=== PATIENT | male | born 1955 | race Caucasian/White ===

== ENCOUNTER → 2020-01-20 10:20 | Outpatient (CLI) | payer MEDICARE, BC, SELFPAY ==
--- NOTE | 2020-01-20 10:27 | RAD_ITS ---
STUDY: X-RAY - RIGHT FOOT CLINICAL: Male, 64 years old. PLANTAR FASCITIS, LOOKING FOR A POSSIBLE SPUR TECHNIQUE: 3 view(s) of the foot. COMPARISON: None. FINDINGS: A small spur is seen at the insertion of the Achilles tendon. Tiny plantar spur. Normal visualized subtalar, talonavicular, calcaneocuboid, tarsal and tarsometatarsal articulations. Normal metatarsi. Normal metatarsophalangeal joint of the great toe. Normal tibial and fibular sesamoid bones. Normal interphalangeal joint of the great toe. Normal phalanges of the great toe. Normal second through fifth metatarsophalangeal joints. Normal interphalangeal joints and phalanges of the lesser toes. The soft tissue structures are unremarkable. RAD/Foot min 3 Views IMPRESSION: Tiny calcaneal spurs. Electronically Signed: Bravo Mccullough, at 11:09 EDT , Service support ,
== END ==
PROVIDERS: PCP Family Medicine; Referring Provider Family Medicine; Visit Provider Family Medicine
DX: M72.2 Plantar fascial fibromatosis (principal)
CPT/HCPCS: 73630

== ENCOUNTER 2020-08-02 17:25 | Outpatient (RCR) | payer MEDICARE, BC, SELFPAY | END 2020-08-02 23:59 | LOC: IMMUN 17:25 | PROVIDERS: PCP Family Medicine; Referring Provider Family Medicine; Visit Provider Family Medicine | DX: Z23 Encounter for immunization (principal) | CPT/HCPCS: 0011A; 0012A ==

== ENCOUNTER → 2021-04-19 10:25 | Outpatient (CLI) | payer MEDICARE, BC, SELFPAY ==
--- NOTE | 2021-04-19 10:29 | RAD_ITS ---
STUDY: XR Shoulder Min 2 Views REASON FOR EXAM: Male, 65 years old. PAIN TECHNIQUE: XR Shoulder Min 2 Views COMPARISON: None. FINDINGS: Normal glenohumeral articulation. Normal acromioclavicular joint. Normal acromion. Normal humeral head and visualized proximal humerus. The soft tissue structures are unremarkable. Normal visualized pulmonary apex. RAD/Shoulder min 2 Views IMPRESSION: There are no acute findings of the shoulder. Electronically Signed: Virgil Silverman MD at 16:54 EST , Service support ,
== END ==
PROVIDERS: PCP Family Medicine; Referring Provider Chiropractor; Visit Provider Chiropractor
DX: S46.912A Strain of unspecified muscle, fascia and tendon at shoulder and upper arm level, left arm, initial encounter (principal)
CPT/HCPCS: 73030

== ENCOUNTER → 2021-11-08 | Outpatient (CLI) | payer MEDICARE, BC, SELFPAY | END | disposition home or self-care (01) | LOC: LAB.FUTURE 09:42 | PROVIDERS: PCP Family Medicine; Visit Provider Family Medicine | DX: Z12.5 Encounter for screening for malignant neoplasm of prostate (principal) ==

== ENCOUNTER → 2021-11-20 | Outpatient (CLI) | payer MEDICARE, BC, SELFPAY ==
[2021-11-20 10:27] LABS: PSA,Total - Annual Screen 4.61 ng/mL (0.00-4.00)
== END | disposition home or self-care (01) ==
LOC: MTLAB 08:50
PROVIDERS: PCP Family Medicine; Referring Provider Family Medicine; Visit Provider Family Medicine
DX: Z12.5 Encounter for screening for malignant neoplasm of prostate (principal)
CPT/HCPCS: 36415; 84153; G0103

== ENCOUNTER → 2021-12-26 | Outpatient (CLI) | payer MEDICARE, BC, SELFPAY ==
[2021-12-26 15:02] LABS: Absolute Lymphocyte Count 1.14 X10^3/uL (0.83-4.51); Absolute Neutrophil Count 4.2 X10^3/uL (2.0-7.7); Basophil# 0.04 X10^3/uL; Basophil% 0.7 % (0-1); Eosinophil# 0.05 X10^3/uL; Eosinophils% 0.9 % (0-5); Hematocrit 43.3 % (40-54); Hemoglobin 14.2 g/dL (13.0-16.5); Lymphocyte # 1.14 X10^3/ul (0.83-4.51); Lymphocyte % 19.4 % (19-41); Mean Corp Hgb Conc 32.8 g/dL (32-36); Mean Corpuscular Hgb 30.6 pg (27.0-32.0); Mean Corpuscular Volume 93.3 fL (80-94); Mean Platelet Vol. 10.2 fl (6.2-12.0); Monocyte# 0.39 X10^3/uL; Monocyte% 6.6 % (0-10); NRBC Flagged by Analyzer 0 % (0-5); Neutrophil # 4.24 X10^3/uL (2.7-7.7); Neutrophil % 72.2 % (47-70); Platelet Count 252 K/mm3 (150-450); RBC Distribution Width CV 12.8 % (11.6-14.6); RBC Distribution Width SD 44.3 fl (35.1-43.9); Red Blood Count 4.64 M/mm3 (4.6-6.2); White Blood Count 5.9 K/mm3 (4.4-11.0)
[2021-12-26 15:23] LABS: ALB/GLOB Ratio 1.2 RATIO (0.9-2.4); AST(SGOT) 15 U/L (15-37); Alanine Aminotransfer ALT/SGPT 22 U/L (16-61); Albumin, Serum 3.6 g/dL (3.2-5.0); Alkaline Phosphatase 73 U/L (45-117); Anion Gap 5 (5-15); BUN 22 mg/dL (7-18); BUN/Creat Ratio 22.8 RATIO (10-20); Calcium,Total 9.1 mg/dL (8.5-10.1); Chloride 104 mmol/L (98-107); Creatinine, Serum 0.96 mg/dL (0.70-1.30); EST Glomerular Filtration Rate 83 mL/min (>60); Est Glom Filt Rate - Afr Amer 100 mL/min (>60); Glucose 90 mg/dL (74-106); Potassium 4.1 mmol/L (3.5-5.1); Protein, Total 6.6 g/dL (6.4-8.2); Sodium Level 139 mmol/L (136-145)
== END | disposition home or self-care (01) ==
PROVIDERS: PCP Family Medicine; Referring Provider Family Medicine; Visit Provider Family Medicine
DX: R63.4 Abnormal weight loss (principal)
CPT/HCPCS: 36415; 80053; 85025

== ENCOUNTER → 2022-12-17 | Outpatient (CLI) | payer MEDICARE, OTHER, SELFPAY ==
[2022-12-17 10:37] LABS: Absolute Lymphocyte Count 1.01 X10^3/uL (0.83-4.51); Absolute Neutrophil Count 3.1 X10^3/uL (2.0-7.7); Basophil# 0.04 X10^3/uL; Basophil% 0.9 % (0-1); Eosinophil# 0.06 X10^3/uL; Eosinophils% 1.3 % (0-5); Hematocrit 42.4 % (40-54); Hemoglobin 13.9 g/dL (13.0-16.5); Lymphocyte # 1.01 X10^3/ul (0.83-4.51); Lymphocyte % 21.7 % (19-41); Mean Corp Hgb Conc 32.8 g/dL (32-36); Mean Corpuscular Hgb 30.8 pg (27.0-32.0); Mean Platelet Vol. 10.1 fl (6.2-12.0); Monocyte# 0.39 X10^3/uL; Monocyte% 8.4 % (0-10); NRBC Flagged by Analyzer 0 % (0-5); Neutrophil # 3.14 X10^3/uL (2.7-7.7); Neutrophil % 67.5 % (47-70); Platelet Count 214 K/mm3 (150-450); RBC Distribution Width CV 12.7 % (11.6-14.6); RBC Distribution Width SD 44.5 fl (35.1-43.9); Red Blood Count 4.51 M/mm3 (4.6-6.2); White Blood Count 4.7 K/mm3 (4.4-11.0)
[2022-12-17 11:41] LABS: ALB/GLOB Ratio 1.1 RATIO (0.9-2.4); AST(SGOT) 18 U/L (15-37); Alanine Aminotransfer ALT/SGPT 21 U/L (16-61); Albumin, Serum 3.5 g/dL (3.2-5.0); Alkaline Phosphatase 66 U/L (45-117); Anion Gap 2 (5-15); BUN 18 mg/dL (7-18); BUN/Creat Ratio 17.8 RATIO (10-20); Calcium,Total 8.8 mg/dL (8.5-10.1); Chloride 108 mmol/L (98-107); Creatinine, Serum 1.01 mg/dL (0.70-1.30); EST Glomerular Filtration Rate 78 mL/min (>60); Est Glom Filt Rate - Afr Amer 94 mL/min (>60); Globulin 3.1 g/dL (2.2-4.2); Glucose 83 mg/dL (74-106); PSA,Total - Annual Screen 4.61 ng/mL (0.00-4.00); Potassium 4.2 mmol/L (3.5-5.1); Protein, Total 6.6 g/dL (6.4-8.2); Sodium Level 139 mmol/L (136-145)
== END | disposition home or self-care (01) ==
LOC: MTLAB 09:32
PROVIDERS: PCP Family Medicine; Referring Provider Family Medicine; Visit Provider Family Medicine
DX: R79.89 Other specified abnormal findings of blood chemistry (principal); R79.9 Abnormal finding of blood chemistry, unspecified; Z12.5 Encounter for screening for malignant neoplasm of prostate
CPT/HCPCS: 36415; 80053; 84153; 85025; G0103

== ENCOUNTER 2023-04-24 11:44 | Emergency (ER) | payer MEDICARE, OTHER, SELFPAY ==
[2023-04-24 11:45] VITALS: BP 138/77; PULSE 84; RESP 16; TEMP 36.7; O2SAT 100; BMI 23.8
--- NOTE | 2023-04-24 12:08 | EX.ED.GUMALE ---
HPI History of Present Illness Chief Complaint: Complaint Narrative Narrative: 67-year-old male past medical history of enlarged prostate, presents from CT scan after being seen by Dr. Frazier for suspected ventral hernia. Patient relates history that he was seen by his primary care provider last week. Was thought that maybe he had a ventral hernia because he complained of pressure in the suprapubic area/umbilical area. He states he has not really had problems urinating except for over the last month has had nighttime leaking of urine. No fevers or chills, no nausea or vomiting, no problems with bowel movement. He states that he has an appointment with Dr. Potts next week because of an enlarged prostate. This was set up by his primary care provider as well. He presents because CT that was obtained by general surgery showed more of an enlarged bladder with bilateral hydronephrosis. PFSH PFSH Home Medications latanoprost 0.005 % eye drops 1 drp ophthalmic (eye) DAILY 04/24/23 [History Last Taken Unknown] tamsulosin 0.4 mg capsule (Flomax) 0.4 mg PO DAILY #14 caps 04/24/23 [Rx Last Taken Unknown] Allergy/AdvReac Type Severity Reaction Status Date / Time No Known Allergies Allergy Unverified 04/24/23 08:38 Family History Father Heart disease Mother Cancer pancreatic Social History Smoking Status: Former smoker alcohol intake: current substance use type: does not use ROS ROS ED ROS Narrative Constitutional: No fever, no chills. HEENT: No sore throat. No neck pain. No loss of vision. No rhinorrhea. Cardiovascular: No chest pain. No palpitations. No pedal edema. Respiratory: No cough, no shortness of breath. Abdominal: Pubic abdominal pressure/abdominal pain. No nausea. No vomiting. Genitourinary: No dysuria. No hematuria. Positive nighttime leakage of urine. Musculoskeletal: No myalgias. No arthralgias. Neurologic: No headaches. No dizziness. No lightheadedness. Skin: No rash. No change in color. Psychiatric: No depression. No anxiety. EXAM Physical Exam Narrative Exam Narrative: Afebrile. Vital signs noted. HEENT: Normocephalic. Atraumatic. PERRL, EOMI. Neck soft and supple. No point tenderness or step off. Cardiovascular: Regular rate and rhythm. No murmurs, rubs, or gallops appreciated. Respiratory: No tachypnea. Lungs clear to auscultation bilaterally. Gastrointestinal: Abdomen soft, nontender, with normoactive bowel sounds. Distended bladder on palpation in suprapubic area. No rebound or guarding. Neurological: Awake. Alert. Nonfocal, nonlateralizing. Skin: No rash. Normal color. No pallor. Musculoskeletal: No pedal edema. Full range of motion extremities. Const Vital Signs: 04/24/23 11:45 Temperature 98.1 F Temperature Source Temporal Pulse Rate 84 Respiratory Rate 16 Blood Pressure 138/77 H Blood Pressure Mean 97 Pulse Ox 100 Oxygen Delivery Method Room Air MDM MDM MDM Narrative Medical decision making narrative: Major concern is for urinary bladder outlet obstruction secondary to BPH. I do feel that laboratory work is indicated mainly to check his kidney function and creatinine to make sure that he does not have severely elevated creatinine/acute kidney injury versus uremia. Wheeler catheter will be inserted. I reviewed his CT imaging from outpatient that was performed today. I will also send his urine for analysis to rule out UTI. In review of his outpatient diagnostic imaging he does have a distended bladder with a bladder diverticulum and bilateral hydronephrosis secondary to an enlarged prostate that measures at least 5 x 5. I reviewed his laboratory work from today and he has normal white count of 5.3, hemoglobin stable 11.1, platelet count normal at 156, sodium normal at 142 with chloride slightly elevated at 109, BUN of 27 with creatinine slightly elevated at 1.7 consistent with acute kidney injury. Glucose was appropriately elevated at 91 with a normal anion gap/low at 3. Urinalysis is negative for infection. In discussion with the patient and his , Dr. Frazier has already written him for Flomax. He has an appointment scheduled on Friday of next week with the urologist, Dr. Potts. He will be discharged with a Wheeler leg bag. I do not feel he requires observation or admission at this time. I do think that his urinary retention is secondary to his enlarged prostate and that he should get his creatinine rechecked as the bladder outflow obstruction has been relieved with a Wheeler catheter currently. Return instructions to the emergency department were reviewed. Patient and are agreeable to the plan. Disposition is discharged home in stable condition. History & Record Review Discussion w/independent historian: Patient and Family () Additional record(s) reviewed:: Prior outpatient record, Prior ED visit and Prior labs Lab Data Attestation: I reviewed the patient's lab results. Labs: Laboratory Results - last 24 hr 04/24/23 04/24/23 12:25 12:29 WBC 5.3 RBC 3.66 L Hgb 11.1 L Hct 34.7 L MCV 94.8 H MCH 30.3 MCHC 32.0 RDW Std Deviation 44.4 H RDW Coeff of Jean 12.8 Plt Count 156 MPV 10.3 Immature Gran % (Auto) 0.400 Neut % (Auto) 69.9 Lymph % (Auto) 18.5 L Charles % (Auto) 7.4 Eos % (Auto) 3.2 Baso % (Auto) 0.6 Absolute Neuts (auto) 3.7 Absolute Lymphs (auto) 0.98 Nucleated RBC % 0 Sodium 142 Potassium 4.6 Chloride 109 H Carbon Dioxide 30.0 Anion Gap 3 L BUN 27 H Creatinine 1.70 H Estim Creat Clear Calc 45.65 Est GFR (MDRD) Af Amer 52 L Est GFR (MDRD) Non-Af 43 L BUN/Creatinine Ratio 15.9 Glucose 91 Calcium 8.2 L Urine Color Yellow Urine Clarity Clear Urine pH 6.0 Ur Specific [place] 1.010 Urine Protein Negative Urine Glucose (UA) Normal Urine Ketones Negative Urine Occult Blood Negative Urine Nitrite Negative Urine Bilirubin Negative Urine Urobilinogen Normal Ur Leukocyte Esterase Negative Urine RBC 0 SEEN Urine WBC 0 SEEN Ur Squamous Epith Cells 0 SEEN Urine Bacteria 0 SEEN Urine Mucus 0 SEEN Discharge Plan Triage Chief Complaint: Complaint ED Provider: Dylon Arteaga Dx/Rx/DC Orders Clinical Impression: Bladder diverticulum, Enlarged prostate, Elevated serum creatinine, Urinary retention Instructions: ED BPH (Enlarged Prostate), ED Wheeler Catheter, Care, ED Urinary Retention, Male Prescriptions: No Action latanoprost 0.005 % drops 1 drp ophthalmic (eye) DAILY tamsulosin [Flomax] 0.4 mg capsule 0.4 mg PO DAILY Qty: 14 0RF Primary Care Provider: Michael Soto Referrals: Juanito Potts MD [Med Staff - Active Staff] - Keep Carla appointment Michael Soto DO [Primary Care Provider] - Activity Restrictions/Additional Instructions: Follow-up with Dr. Potts as scheduled. Take the Flomax written for you by Dr. Frazier. Do not pull at Wheeler catheter. Disposition Disposition: Home, Self Care
[2023-04-24 12:31] LABS: Bacteria 0 SEEN /hpf (None Seen); Mucous, Urine 0 SEEN /hpf (<or=2+); Red Blood Cells-Urine 0 SEEN /hpf (0-5); Squamous Epithelial Cells - UA 0 SEEN /hpf (0-5); White Blood Cells 0 SEEN /hpf (0-5)
[2023-04-24 12:36] LABS: Color, Urine Yellow (Yellow); Glucose, Dipstick Normal (Normal); Ketone-Dipstick Negative (Negative); Leukocyte Esterase-Dipstick Negative /ul (Negative); Nitrite-Dipstick Negative (Negative); Occult Blood-Urine Negative /ul (Negative); Protein-Dipstick Negative (Negative); Urine Bilirubin Dipstick Negative (Negative); Urine Clarity Clear (Clear); Urine Urobilinogen Normal (Normal)
[2023-04-24 12:44] LABS: Absolute Lymphocyte Count 0.98 X10^3/uL (0.83-4.51); Absolute Neutrophil Count 3.7 X10^3/uL (2.0-7.7); Basophil# 0.03 X10^3/uL; Basophil% 0.6 % (0-1); Eosinophil# 0.17 X10^3/uL; Eosinophils% 3.2 % (0-5); Hematocrit 34.7 % (40-54); Hemoglobin 11.1 g/dL (13.0-16.5); Lymphocyte # 0.98 X10^3/ul (0.83-4.51); Lymphocyte % 18.5 % (19-41); Mean Corpuscular Hgb 30.3 pg (27.0-32.0); Mean Corpuscular Volume 94.8 fL (80-94); Mean Platelet Vol. 10.3 fl (6.2-12.0); Monocyte# 0.39 X10^3/uL; Monocyte% 7.4 % (0-10); NRBC Flagged by Analyzer 0 % (0-5); Neutrophil % 69.9 % (47-70); Platelet Count 156 K/mm3 (150-450); RBC Distribution Width CV 12.8 % (11.6-14.6); RBC Distribution Width SD 44.4 fl (35.1-43.9); Red Blood Count 3.66 M/mm3 (4.6-6.2); White Blood Count 5.3 K/mm3 (4.4-11.0)
[2023-04-24 12:47] LABS: Anion Gap 3 (5-15); BUN 27 mg/dL (7-18); BUN/Creat Ratio 15.9 RATIO (10-20); Calcium,Total 8.2 mg/dL (8.5-10.1); Chloride 109 mmol/L (98-107); EST Glomerular Filtration Rate 43 mL/min (>60); Est Glom Filt Rate - Afr Amer 52 mL/min (>60); Estimated Creatinine Clearance 45.65 ml/min; Glucose 91 mg/dL (74-106); Potassium 4.6 mmol/L (3.5-5.1); Sodium Level 142 mmol/L (136-145)
== END 2023-04-24 14:19 | disposition home or self-care (01) ==
PROVIDERS: Emergency Provider Emergency Medicine; PCP Family Medicine; Visit Provider Emergency Medicine
DX: N32.3 Diverticulum of bladder (principal); N40.1 Benign prostatic hyperplasia with lower urinary tract symptoms; N13.30 Unspecified hydronephrosis; N32.0 Bladder-neck obstruction; R33.8 Other retention of urine; Z87.891 Personal history of nicotine dependence
CPT/HCPCS: 51702; 80048; 81001; 85025; 99283; A4216

== ENCOUNTER → 2023-04-24 | Outpatient (CLI) | payer MEDICARE, OTHER, SELFPAY ==
--- NOTE | 2023-04-24 09:06 | CT_ITS ---
STUDY: CT ABDOMEN AND PELVIS WITH CONTRAST REASON FOR EXAM: Male, 67 years old. Abdominal pain/enlarged bladder -- po/IV. History of BPH. RADIATION DOSAGE (If Supplied By Facility): CTDIvol = ( 13.67 ) mGy, DLP = ( 1264.14 ) mGycm TECHNIQUE: Transaxial images were obtained from the dome of the diaphragm to the symphysis pubis with oral contrast. Oral and amp; IV Gastrografin and amp; 100mL Isovue-300 was administered. Sagittal and coronal images were reconstructed. Individualized dose optimization techniques were used for this CT. COMPARISON: None. FINDINGS: The visualized lung bases are unremarkable. Coronary artery calcification. Normal liver. Normal gallbladder and extrahepatic biliary system. Normal spleen. Normal pancreas. Normal bilateral adrenal glands. Moderate degree of bilateral hydronephrosis and hydroureter down to the bladder. Normal visualized stomach. Normal small intestine. Normal colon. The appendix is visualized and appears normal. Normal abdominal aorta. Normal inferior vena cava. Normal retroperitoneum. Markedly distended urinary bladder. Marked degree of a heterogeneous enlargement of the prostate with indentation at the bladder base. The prostate measures 5.6 times by 5.6 cm. There is a 2.7 cm x 1.9 cm right posterior bladder diverticulum Normal abdominal wall. Loss of the normal lumbar lordosis. Disc space narrowing with subchondral sclerosis and spondylosis at the L4-L5 level. CT/Abdomen/Pelvis WITH Contrast IMPRESSION: Moderate degree of bilateral hydronephrosis and hydroureter due to a markedly distended urinary bladder with heterogeneous enlargement of the prostate with indentation at the bladder base. Small right posterior bladder diverticulum. Electronically Signed: Bravo Mccullough MD at 12:24 EST ,
[2023-04-24 11:42] LABS: CREATININE FINGERSTICK 1.2 mg/dL (0.70-1.30); EGFR FINGERSTICK > 60.0000 mL/min (>60)
== END | disposition home or self-care (01) ==
LOC: CT 09:03
PROVIDERS: PCP Family Medicine; Referring Provider Surgery; Visit Provider Surgery
DX: K43.9 Ventral hernia without obstruction or gangrene (principal); R10.9 Unspecified abdominal pain
CPT/HCPCS: 74177; Q9967; A4216

== ENCOUNTER → 2023-05-17 | Outpatient (CLI) | payer MEDICARE, OTHER, SELFPAY ==
[2023-05-17 14:26] LABS: Bacteria 0 SEEN /hpf (None Seen); Mucous, Urine 0 SEEN /hpf (<or=2+); Red Blood Cells-Urine 0 SEEN /hpf (0-5); Squamous Epithelial Cells - UA 0 SEEN /hpf (0-5)
[2023-05-17 14:39] LABS: Color, Urine Yellow (Yellow); Glucose, Dipstick Normal (Normal); Ketone-Dipstick Negative (Negative); Leukocyte Esterase-Dipstick 500 /ul (Negative); Nitrite-Dipstick Negative (Negative); Occult Blood-Urine 150 /ul (Negative); Protein-Dipstick 100 mg/dl (Negative); Urine Bilirubin Dipstick Negative (Negative); Urine Clarity Clear (Clear); Urine Urobilinogen Normal (Normal)
[2023-05-17 14:50] LABS: White Blood Cells >100 SEEN /hpf (0-5)
== END | disposition home or self-care (01) ==
LOC: LABSPEC 14:25
PROVIDERS: PCP Family Medicine; Visit Provider Physician Assistant Medical
DX: R33.9 Retention of urine, unspecified (principal); R30.0 Dysuria
CPT/HCPCS: 81001; 87077; 87086; 87088; 87186

== ENCOUNTER 2023-06-06 13:50 | Inpatient (IN) | payer MEDICARE, OTHER, SELFPAY ==
[2023-06-06] VITALS (14 sets, daily range): BP systolic 106–131; BP diastolic 56–92; PULSE 50–115; RESP 16–100; TEMP 36.4–37.4; O2SAT 96–100; BMI 22.1
[2023-06-06] MEDS: Lactated Ringers 1,000 ML 15 ML IV (11:21)
--- NOTE | 2023-06-06 12:30 | PROST_PTH ---
PATIENT: SHEKHAR THOMPSON LOC: MS3 U#:[id number] AGE/SX: 67/M ROOM: AR305 RE06/06/[address]: Dr. Juanito Potts MD : 1955 BED: 1 DIS: 06/08/2023 SPEC #: [id number] RECD: 06/10/23 07:53 STATUS: GORAN HEREDIA #: [id number] STORMY: 06/06/23 12:[address]: Juanito Potts DEPT: SURGICAL PATHOLOGY RECD BY: Kelsie Sarmiento ENTERED: 06/10/23 07:54 SP TYPE: PROSTATE OTHR DR: Dr. Michael Soto, DO Tissues: Prostate, NOS Procedures: Surgery Specimen Level V HEADER OPERATION: Laparoscopic robotic simple prostatectomy PRE-OP DIAGNOSIS: BPH with lower urinary tract symptoms, retention of urine TISSUE SUBMITTED: Prostate MICROSCOPIC DIAGNOSIS Prostate, simple prostatectomy: Benign prostatic hyperplasia, glandular and stromal type. Chronic inflammation. SJ:rg 06/11/2023 MICROSCOPIC DESCRIPTION Slides are reviewed. GROSS DESCRIPTION Received in fixative is one container labeled with the patient's name and designated prostate. The specimen consists of a simple prostatectomy specimen in multiple pieces weighing 69.5 gm. The largest piece measures 6.5 x 6.0 x 5.0 cm. Multiple smaller pieces are also noted measuring in aggregate 5.0 x 5.0 x 1.0 cm. Sections reveal multinodular solid cut surfaces. No obvious mass lesion is identified. Telephone Service Adviser sections are submitted in ten cassettes as follows: 1-8 - largest piece, 9 & 10 - smaller pieces. / INOCENCIO:betsy 06/10/2023 TC:5 CPT: 02283
--- NOTE | 2023-06-06 13:51 | PCM.HP.STD ---
HPI - General General Date of Service: 06/06/23 Chief Complaint: Urinary retention HPI Narrative SHEKHAR THOMPSON, is a 67 M who presents simple robotic prostatectomy for urinary retention PFSH Medical History (Updated 05/29/23 @ 08:19 by Shanice Giang) Alcohol use Former smoker History of stress test Indwelling urethral catheter present Leg cramps Migraine headache Prostate disease Shortness of breath on exertion Wears glasses Home Medications latanoprost 0.005 % eye drops 1 drp ophthalmic (eye) QHS 04/24/23 [History Last Taken Unknown] acetaminophen 500 mg tablet (Tylenol Extra Strength) 500 mg PO Q6H PRN fever or pain #20 tabs 06/06/23 [Rx Last Taken Unknown] ciprofloxacin HCl 500 mg tablet (Cipro) 500 mg PO BID #20 tabs 06/06/23 [Rx Last Taken Unknown] ibuprofen 600 mg tablet 600 mg PO Q6H PRN fever or pain #20 tabs 06/06/23 [Rx Last Taken Unknown] Allergy/AdvReac Type Severity Reaction Status Date / Time No Known Allergies Allergy Verified 06/06/23 11:09 Family History Father Heart disease Mother Cancer pancreatic Surgical History (Updated 05/29/23 @ 08:19 by Shanice Giang) Hx of colonoscopy Hx of tonsillectomy Social History Smoking Status: Former smoker alcohol intake: current substance use type: does not use Vital Signs Vital Signs Vital Signs: 06/06/23 11:12 06/06/23 11:12 Temperature 97.5 F L Temperature Source Temporal Pulse Rate 50 L Respiratory Rate 16 Respiratory Pattern Normal Blood Pressure 111/62 Blood Pressure Mean 78 Blood Pressure Source Monitor Blood Pressure Position Semi-Fowlers Blood Pressure Location Left Arm Pulse Ox 99 Oxygen Delivery Method Room Air Weight Weight: 74 kg Body Mass Index (BMI) 22.1
--- NOTE | 2023-06-06 13:52 | DCINST_ITS ---
Discharge Instructions Diet Discharge Diet: No restrictions Activity Discharge Activity: Return to Normal Activity and May Not Drive (while taking narcotic pain medications.) Dressing / Incision Call your doctor if you observe: Fever of 101 or Higher Catheter: Wheeler to leg bag and Wheeler to large bag Drain: [place] Follow Up Care Please Follow Up With: Juanito Potts MD When: Call [phone] for an appointment Test Results: Test results from this visit will be discussed in further detail at your follow- up appointment, if applicable. Discharge Plan Admission Primary Reason for Your Visit: Simple prostatectomy Attending Provider: Juanito Potts Primary Care Provider: Michael Soto Discharge Orders/Prescriptions Prescriptions: New ciprofloxacin HCl [Cipro] 500 mg tablet 500 mg PO BID Qty: 20 0RF ibuprofen 600 mg tablet 600 mg PO Q6H PRN (Reason: fever or pain) Qty: 20 0RF acetaminophen [Tylenol Extra Strength] 500 mg tablet 500 mg PO Q6H PRN (Reason: fever or pain) Qty: 20 0RF No Action latanoprost 0.005 % drops 1 drp ophthalmic (eye) QHS Referrals / Follow Up: Michael Soto DO [Primary Care Provider] - Disposition Disposition (needs filled in before D/C Order can be placed): Home, Self Care
[2023-06-06] MEDS: Cefazolin 2 GM in 0.9% Normal Saline (100mL Bag) 100 ML IV (13:53)
[2023-06-06] MEDS: Bupivacaine Mpf 0.5% 30 ML VIAL (16:00)
--- NOTE | 2023-06-06 16:16 | OP.PCM_ITS ---
Report of Operation Date of Procedure: 06/06/23 Pre-Operative Diagnosis: BPH with retention of urine Post-Operative Diagnosis: The same Surgery/Procedure Performed:: Laparoscopic robotic simple prostatectomy Description of Surgical Findings:: Patient presents for a simple robotic prostatectomy. He understands that organ to do enucleation of the obstructing adenoma and then after his surgery he will need a catheter to allow this to heal. He understands is no guarantees that after the surgery he will be able to urinate spontaneously and may need to learn how to do self intermittent catheterization. We also talked about the risk of surgery which involves risk of bleeding and infection scar tissue formation bladder neck contracture. Patient was taken back to the operating room at this induction of anesthesia he underwent and intubation and was placed supine on the table. The abdomen was shaved prepped and draped in usual sterile fashion. A Hweeler catheter was placed into the penis. I then infiltrated the skin above the umbilicus with lidocaine and made a small 5 mm incision in the skin. I then advanced a Veress needle into the peritoneal cavity and inflated the peritoneal cavity with CO2 gas. Once the pressure was at 15 mm and a nice distention of the abdomen then the camera trocar was put into the abdomen. We then looked in with the 0 degree lens and we placed a right arm trocar and left arm trocar and then an air seal suction port high up in the abdomen to allow the therapeutic recreation assistant to use this for suction. The robot was then docked and then we proceeded with the dissection. The colon was mobilized from the flexure of the colon on the patient's left side once this was freed up then the bladder was distended with 300 cc of sterile normal saline. I then made an incision in the bladder in the midline once we go t inside the bladder that drained out all the saline we then used 2 Nik needles to retract the bladder laterally. Once the bladder was retracted in a clamshell fashion laterally then we got inside the bladder inspected the bladder deflated the balloon left the catheter in place. We then started with scoring the mucosa circumferentially all the way around very large protruding adenomatous prostate. I then dissected between the adenoma and the bladder inferiorly working my way in the avascular enucleation plane between the adenoma and the prostate capsule, pseudocapsule all the way inferiorly I then started working my way laterally up on the right side of the prostate until I got to the anterior part freeing up the adenomatous tissue from the prostate and the anterior tissue and cutting through the bladder muscle and mucosa. We then worked our way laterally on the left side of the adenomatous tissue freeing up the adenoma from the prostate and the bladder muscle and mucosa I then came on top of the adenoma and was able to retract the adenoma out and then split the adenoma in half and identified the catheter and then identified the urethral strip the urethral strip was then carefully transected and then the right adenomatous tissue was removed and then the left adenomatous tissue was removed all intact and all this was placed in Endo Catch bag. Then we cauterized the prostate fossa extensively to control hemostasis Floseal was placed in the prostatic fossa. I then used a 3 oh V-Loc stitch to bring down the mucosa and advance it down towards the urethra circumferentially to advance the mucosa down to the urethral stump. We then placed a Wheeler catheter, 20 [place] into the bladder with no continuous irrigation. Irrigate out the bladder irrigate all the clots out we then closed the bladder with 2 layers using 2 oh V-Loc stitch and then a 4-0 Vicryl stitch. Both the Nik needles were removed that were retracting the bladder. We then undocked the robot we extracted the prostate adenoma through the umbilicus port we closed the air seal port with 1012 stitch and then we closed all the other ports with subcuticular stitches once the prostate was extracted to the camera port and we reapproximated the fascia and the camera port with a 0 Vicryl [id number] fashion stitch. Minimal blood loss during the case catheter was irrigated and draining well patient anesthetic was reversed and he was taken back to the PACU in good condition. Surgeon: Juanito Potts Type of Anesthesia: General Drains: 22fr Estimated Blood Loss (mL): 250ml Admit VTE Documentation VTE Present on Admission: No VTE Mechan Device Prophylaxis: SCD's VTE Pharm Prophylaxis ordered?: No
[2023-06-06] MEDS: 0.9% Normal Saline (1000mL) 1,000 ML 50 ML IV (17:58)
[2023-06-06] MEDS: Acetaminophen 325 MG Tablet PO (18:48)
[2023-06-06] MEDS: oxyCODONE 5 MG Tablet PO (18:49)
[2023-06-06] MEDS: Ketorolac 15 MG/ML Vial IV (20:44)
[2023-06-06] MEDS: Docusate Sodium 100 MG Capsule 200 MG PO (20:44)
[2023-06-06] MEDS: Latanoprost 0.005% 1 Bottle 1 DRP OPHTHALMIC (20:44)
[2023-06-06] MEDS: Ciprofloxacin 400 MG/200 ML BAG 200 MG IV (22:15)
[2023-06-07 02:20] VITALS: BP 110/59; PULSE 60; RESP 16; TEMP 37.1; O2SAT 96
[2023-06-07] MEDS: Ketorolac 15 MG/ML Vial IV (06:20)
[2023-06-07 06:57] LABS: Hematocrit 30.1 % (40-54); Mean Corp Hgb Conc 33.2 g/dL (32-36); Mean Corpuscular Hgb 30.7 pg (27.0-32.0); Mean Corpuscular Volume 92.3 fL (80-94); Platelet Count 261 K/mm3 (150-450); RBC Distribution Width SD 47.1 fl (35.1-43.9); Red Blood Count 3.26 M/mm3 (4.6-6.2); White Blood Count 10.4 K/mm3 (4.4-11.0)
[2023-06-07 06:58] VITALS: BP 107/50; PULSE 62; RESP 16; TEMP 37.2; O2SAT 98
[2023-06-07 07:13] LABS: Anion Gap 4 (5-15); BUN 23 mg/dL (7-18); BUN/Creat Ratio 16.5 RATIO (10-20); Calcium,Total 8.3 mg/dL (8.5-10.1); Chloride 107 mmol/L (98-107); Creatinine, Serum 1.39 mg/dL (0.70-1.30); EST Glomerular Filtration Rate 54 mL/min (>60); Est Glom Filt Rate - Afr Amer 65 mL/min (>60); Estimated Creatinine Clearance 53.24 ml/min; Glucose 108 mg/dL (74-106); Potassium 4.7 mmol/L (3.5-5.1); Sodium Level 138 mmol/L (136-145)
--- NOTE | 2023-06-07 08:22 | PN.URO_ITS ---
Subjective Subjective Patient out of bed this morning urine is a light bloody color but still with irrigation he is doing well up and alert pain is under control at some mild discomfort when getting out of bed. Doing well postoperative day #1 probably will be ready for discharge tomorrow Objective Data Objective Data Vital Signs: Vital Signs Temp Pulse Resp BP Pulse Ox O2 Del Method 98.9 F 62 16 107/50 L 98 Room Air 06/07/23 06:58 06/07/23 06:58 06/07/23 06:58 06/07/23 06:58 06/07/23 06:58 06/07/23 07:41 Oxygen Delivery Method Room Air Weight: 74 kg Body Mass Index (BMI) 22.1 Intake & Output: Intake and Output for Last 24 Hours 06/05/23 06/06/23 06/07/23 23:59 23:59 23:59 Intake Total 1529.17 / 1529.17 Output Total 1250 / 1250 400 / 400 Balance 279.17 / 279.17 -400 / -400 Lab / Micro Data 06/07/23 06:38 06/07/23 06:38 Labs: Laboratory Results - last 24 hr 06/07/23 06:38: WBC 10.4, RBC 3.26 L, Hgb 10.0 L, Hct 30.1 L, MCV 92.3, MCH 30.7, MCHC 33.2, RDW Std Deviation 47.1 H, RDW Coeff of Jean 14.0, Plt Count 261, MPV 9.0, Sodium 138, Potassium 4.7, Chloride 107, Carbon Dioxide 27.0, Anion Gap 4 L, BUN 23 H, Creatinine 1.39 H, Estim Creat Clear Calc 53.24, Est GFR (MDRD) Af Amer 65, Est GFR (MDRD) Non-Af 54 L, BUN/Creatinine Ratio 16.5, Glucose 108 H , Calcium 8.3 L
[2023-06-07 09:56] VITALS: BP 93/56; PULSE 60; RESP 16; TEMP 36.8; O2SAT 92
[2023-06-07] MEDS: Ciprofloxacin 400 MG/200 ML BAG 200 MG IV (11:00)
[2023-06-07] MEDS: 0.9% Normal Saline (1000mL) 1,000 ML 50 ML IV (11:00)
[2023-06-07] MEDS: Docusate Sodium 100 MG Capsule 200 MG PO ×2 (11:00→21:40)
--- NOTE | 2023-06-07 13:05 | CASEMGMT ---
RN CM Face to Face with patient for initial transition planning/care coordination assessment. RN CM introduced self and role at [facility]. Patient lying in bed, alert and oriented. Patient willing to participate in assessment and is able to answer all questions appropriately. Care providers, pharmacy, and demographics verified. Patient wishes to discharge home, denies need for home health at this time. Patient states he has no further needs or concerns at this time. CM to follow for discharge planning needs that may arise. PCP: Charles Specialists: Katlyn, urologist; Jules [employer] Preferred Pharmacy: [facility], [facility] retail Insurance: [employer] Prescription Benefit: yes Living Will/HPOA: yes, Dorina Hector LNOK: Living Arrangements: Patient lives with in a 2 story home with first floor setup available. Patient is independent at home and able to ambulate stairs. Transportation: self, DME/HHC: Patient denies DME in the home. No previous HHC or SNF. Patient going home with falcon catheter and has managed falcon at home previously Disposition Plan: Patient to discharge home with family support and follow-up plans in place. Anne-Marie TAMEZ, RN, CM
[2023-06-07 13:56] VITALS: BP 103/71; PULSE 112; RESP 14; TEMP 36.9; O2SAT 96
[2023-06-07] MEDS: oxyCODONE 5 MG Tablet PO ×2 (15:08→21:41)
[2023-06-07] MEDS: Acetaminophen 325 MG Tablet PO ×2 (15:09→21:40)
[2023-06-07 19:39] VITALS: BP 118/77; PULSE 56; RESP 18; TEMP 36.6; O2SAT 97
[2023-06-07] MEDS: Latanoprost 0.005% 1 Bottle 1 DRP OPHTHALMIC (21:42)
[2023-06-08 02:41] VITALS: BP 125/75; PULSE 66; RESP 18; TEMP 36.8; O2SAT 96
[2023-06-08] MEDS: Acetaminophen 325 MG Tablet PO (07:48)
[2023-06-08] MEDS: Docusate Sodium 100 MG Capsule 200 MG PO (07:49)
[2023-06-08 08:00] VITALS: BP 123/81; PULSE 58; RESP 14; TEMP 36.7; O2SAT 96
--- NOTE | 2023-06-08 10:02 | PCM.PN.GU ---
Subjective Subjective Status post robotic simple prostatectomy for BPH and obstruction retention of urine urine is perfectly clear off irrigation we will put a catheter plug and today he will go home with a catheter to leg bag and large bag follow-up in about 7 to 10 days for catheter removal Objective Data Objective Data Vital Signs: Vital Signs Temp Pulse Resp BP Pulse Ox O2 Del Method 98.1 F 58 L 14 123/81 H 96 Room Air 06/08/23 08:00 06/08/23 08:00 06/08/23 08:00 06/08/23 08:00 06/08/23 08:00 06/08/23 08:00 Oxygen Delivery Method Room Air Weight: 74 kg Body Mass Index (BMI) 22.1 Intake & Output: Intake and Output for Last 24 Hours 06/06/23 06/07/23 06/08/23 23:59 23:59 23:59 Intake Total 1529.17 / 1529.17 788.33 / 1288.33 2099.17 / 2099.17 Output Total 1250 / 1250 3100 / 3100 1875 / 1875 Balance 279.17 / 279.17 -2311.67 / -1811.67 224.17 / 224.17 Lab / Micro Data 06/07/23 06:38 06/07/23 06:38
== END 2023-06-08 11:55 | disposition home or self-care (01) | DRG 707 ==
LOC: SDC 15:06 → MS3 17:59
PROVIDERS: Admitting Provider Urology; PCP Family Medicine; Referring Provider Urology; Visit Provider Urology
PROC: 0VT04ZZ Resection of Prostate, Percutaneous Endoscopic Approach (ICD-10-PCS; CPT 55867; principal; 2023-06-06 12:10)
DX: N40.1 Benign prostatic hyperplasia with lower urinary tract symptoms (principal); N13.8 Other obstructive and reflux uropathy; R33.8 Other retention of urine; Z87.891 Personal history of nicotine dependence
CPT/HCPCS: 36415; 80048; 85027; 88307; 88309; 93005; 94668; 99252; J7030; J7120; G0463; J0744; J2405

== ENCOUNTER → 2023-10-13 | Outpatient (CLI) | payer MEDICARE, OTHER, SELFPAY ==
[2023-10-13 11:39] LABS: PSA,Total- Diagnostic 1.03 ng/mL (0.0-4.0)
== END | disposition home or self-care (01) ==
PROVIDERS: PCP Family Medicine; Referring Provider Urology; Visit Provider Urology
DX: R97.20 Elevated prostate specific antigen [PSA] (principal)
CPT/HCPCS: 36415; 84153

== ENCOUNTER 2024-01-08 09:34 | Outpatient (RCR) | payer MEDICARE, OTHER, SELFPAY | END 2024-01-08 19:00 | disposition home or self-care (01) | LOC: PT 09:34 | PROVIDERS: PCP Family Medicine; Referring Provider Family Medicine; Visit Provider Family Medicine | DX: M23.301 Other meniscus derangements, unspecified lateral meniscus, left knee (principal) | CPT/HCPCS: 97110; 97161 ==

== ENCOUNTER → 2024-08-04 | Outpatient (CLI) | payer MEDICARE, OTHER, SELFPAY ==
[2024-08-04 10:26] LABS: Absolute Lymphocyte Count 1.34 X10^3/uL (0.83-4.51); Absolute Neutrophil Count 3.8 X10^3/uL (2.0-7.7); Basophil# 0.04 X10^3/uL; Basophil% 0.7 % (0-1); Eosinophil# 0.16 X10^3/uL; Eosinophils% 2.8 % (0-5); Hematocrit 43.8 % (40-54); Hemoglobin 14.4 g/dL (13.0-16.5); Lymphocyte # 1.34 X10^3/ul (0.83-4.51); Lymphocyte % 23.5 % (19-41); Mean Corp Hgb Conc 32.9 g/dL (32-36); Mean Corpuscular Hgb 29.6 pg (27.0-32.0); Mean Corpuscular Volume 90.1 fL (80-94); Mean Platelet Vol. 9.4 fl (6.2-12.0); NRBC Flagged by Analyzer 0 % (0-5); Neutrophil # 3.76 X10^3/uL (2.7-7.7); Neutrophil % 65.8 % (47-70); Platelet Count 241 K/mm3 (150-450); RBC Distribution Width CV 12.7 % (11.6-14.6); Red Blood Count 4.86 M/mm3 (4.6-6.2); White Blood Count 5.7 K/mm3 (4.4-11.0)
[2024-08-04 10:51] LABS: ALB/GLOB Ratio 1.8 RATIO (0.9-2.4); AST(SGOT) 24 U/L (<=37); Alanine Aminotransfer ALT/SGPT 13 U/L (<=46); Albumin, Serum 4.1 g/dL (3.4-4.8); Alkaline Phosphatase 70 U/L (40-129); Anion Gap 13 (5-15); BUN 22 mg/dL (4-19); BUN/Creat Ratio 19.6 RATIO (10-20); Calcium 9.2 mg/dL (7.6-11.0); Carbon Dioxide 24.2 mmol/L (22.0-29.0); Chloride 103 mmol/L (96-108); Cholesterol 189 mg/dL (<=200); Creatinine, Serum 1.1 mg/dL (0.8-1.3); EST Glomerular Filtration Rate 72 (>60); Globulin 2.3 g/dL (2.2-4.2); Glucose 87 mg/dL (70-99); High Density Lipoprotein 58 mg/dL; Low Density Lipoprotein Calc. 121 mg/dL; Potassium 4.2 mmol/L (3.3-5.1); Protein, Total 6.4 g/dL (5.9-8.4); Sodium Level 140 mmol/L (133-145); Total Bilirubin 0.46 mg/dL (0.00-1.30); Triglycerides 49 mg/dL; Very Low Density Lipoprotein 10 mg/dL (5-40); cholesterol:hdl ratio screen 3.27
== END | disposition home or self-care (01) ==
LOC: MTLAB 08:20
PROVIDERS: PCP Family Medicine; Referring Provider Family Medicine; Visit Provider Family Medicine
DX: N18.31 Chronic kidney disease, stage 3a (principal); D64.9 Anemia, unspecified
CPT/HCPCS: 36415; 80053; 80061; 85025

== ENCOUNTER → 2024-10-19 | Outpatient (CLI) | payer MEDICARE, OTHER, SELFPAY ==
[2024-10-19 10:41] LABS: PSA,Total- Diagnostic 0.69 ng/mL (0.00-4.00)
== END | disposition home or self-care (01) ==
LOC: MTLAB 08:46
PROVIDERS: PCP Family Medicine; Referring Provider Urology; Visit Provider Urology
DX: R97.20 Elevated prostate specific antigen [PSA] (principal)
CPT/HCPCS: 36415; 84153

== ENCOUNTER → 2025-06-06 | Outpatient (CLI) | payer MEDICARE, OTHER, SELFPAY ==
--- OUTSIDE RECORDS SUMMARY | 2025-06-06 10:27 | XMS RPT_ITS | CCD ---
Author Organization [facility] Care Team Providers Care Inspector Hairspring Name Role Phone Dr. Michael Soto Primary Care Provider Dr. Michael Soto Referring Provider [phone] Dr. Elvira Frazier Attending Provider Malou ALVARES, PA Ambar Kevin Attending Provider Dr. Michael Soto DO Primary Care Provider Dr. Michael Soto DO Attending Provider Dr. Michael Soto DO Referring Provider Katlyn VILLEDA, Dr. Juanito Cason Attending Provider [phone] Katlyn VILLEDA, Dr. Juanito Cason Referring Provider [phone] Michael Soto Attending Unavailable Michael Soto Primary Care Unavailable Michael Soto Referring Unavailable Michael Soto Primary Care Unavailable Michael Soto Referring Unavailable Michael Soto Attending Unavailable Michael Soto Primary Care Unavailable Juanito Potts Referring Unavailable Juanito Potts Attending Unavailable Medications Current Medications Medication Drug Class(es) Dates Sig (Normalized) Sig (Original) acetaminophen 500 mg oral tablet (4 sources) Start: 06-06-2023 take 1 tablet by mouth every six hours as needed for pain Acetaminophen (Tylenol Extra Strength) 500 mg tablet Active 500 mg PO EVERY 6 HOURS as needed for fever or pain June 06, 2023 1:00am ciprofloxacin 500 mg oral tablet (9 sources) Quinolone Antimicrobial Start: 06-06-2023 take 1 tablet by mouth twice daily Ciprofloxacin Hcl (Cipro) 500 mg tablet Active 500 mg PO TWICE A DAY June 06, 2023 1:00am Start: 05-17-2023 End: 05-27-2023 take 1 tablet by mouth twice daily Ciprofloxacin Hcl 500 mg tablet Discontinued 500 mg PO TWICE A DAY 28 03May 17, 2023 1:00am May 26, 2023 1:00am May 27, 2023 1:05am ibuprofen 600 mg oral tablet (4 sources) Nonsteroidal Anti-inflammatory Drug Start: 06-06-2023 take 1 tablet by mouth every six hours as needed for pain Ibuprofen 600 mg tablet Active 600 mg PO EVERY 6 HOURS as needed for fever or pain June 06, 2023 1:00am latanoprost 0.05 mg/ml ophthalmic solution (7 sources) Prostaglandin Analog Start: 04-24-2023 Latanoprost 0.005 % drops Active 1 NMA OPHTHALMIC AT BEDTIME April 24, 2023 1:00am Start: 04-24-2023 Latanoprost Ac tive 1 DRP OPHTHALMIC AT BEDTIME April 24, 2023 1:00am Start: 04-24-2023 Latanoprost Ac tive 1 DRP OPHTHALMIC DAILY April 24, 2023 12:00am tamsulosin hydrochloride 0.4 mg oral capsule (3 sources) alpha-Adrenergic Porfirio Start: 04-24-2023 take 1 capsule by mouth once daily Tamsulosin (Flomax) 0.4 mg capsule Active 0.4 MG PO DAILY April 24, 2023 12:00am Problems Problem Classification Problem Date Documented Da te Episodic/Chronic Abdominal hernia (7 sources) Hernia of anterior abdominal wall; Translations: [Ventral hernia without obstruction or gangrene] 04-24-2023 Episodic Chronic kidney disease (1 source) Chronic kidney disease; Translations: [Chronic kidney disease, stage 3a] Onset: 08-19-2024 Genitourinary symptoms and ill-defined conditions (13 sources) Retention of urine; Translations: [Retention of urine, unspecified] 04-24-2023 Episodic Hyperplasia of prostate (7 sources) Large prostate ; Translations: [Benign prostatic hyperplasia without lower urinary tract symptoms] 04-24-2023 Chronic Joint disorders and dislocations; trauma-related (1 source) Other meniscus derangements, unspecified lateral meniscus, left knee; Translations: [Other meniscus derangements, unspecified lateral meniscus, left knee] Onset: 06-03-2024 Chronic Other connective tissue disease (7 sources) Diastasis recti; Translations: [Separation of muscle (nontraumatic), other site] 04-24-2023 Episodic Other connective tissue disease (4 sources) Separation of muscle (nontraumatic), other site; Translations: [Diastasis of muscle] 04-24-2023 Episodic Other diseases of bladder and urethra (7 sources) Diverticulum of bladder; Translations: [Diverticulum of bladder] 04-24-2023 Chronic Other screening for suspected conditions (not mental disorders or infectious disease) (8 sources) Serum creatinine raised; Translations: [Other specified abnormal findings of blood chemistry] Onset: 10-25-2024 04-24-2023 Episodic Urinary tract infections (7 sources) Urinary tract infectious disease; Translations: [Urinary tract infection, site not specified] 05-17-2023 Episodic Results Test Name Value Interpretation Reference Range Facility PSA,Total- Diagnosticon 10-07 PSA, DIAGNOSTIC 0.69 ng/mL Normal 0.00-4.00 [facility] Comment on above: Result Comment: This test was performed using the [facility] [employer] tPSA method. Measured values of a patient??sample can vary depending on the testing procedure used. PSA values determined on patient samples by different testing procedures cannot be used interchangeably. If there is a change in PSA assays while monitoring therapy, sequential testing should be performed to confirm baseline values. Performed By: #### L 501.9940 #### [facility] [address] [place], [address] Absolute lymphocyte countOrd ered By: Michael Soto on 08-04-2024 Lymphocytes Auto (Unsp spec) [#/Vol] 1.34 10*3/uL 0.83-4.51 [facility] Absolute neutrophil countOrd ered By: Michael Soto on 08-04-2024 Neutrophils (Bld) [#/Vol] 3.8 10*3/uL 2.0-7.7 [facility] Automated lymphocyte count a s percentage of total leukocytesOrdered By: Michael Soto on 08-04-2024 Lymphocytes/100 WBC Auto (Unsp spec) 23.5 % 19-41 [facility] BUN/creatinine ratioOrdered By: Michael Soto on 08-04-2024 Urea nitrogen/Creatinine [Mass ratio] 19.6 mg/mg 10-20 [facility] Basophil percentageOrdered B y: Michael Soto on 08-04-2024 Basophils/100 WBC (Bld) 0.7 % 0-1 [facility] Bilirubin, totalOrdered By: Michael Soto on 08-04-2024 Bilirubin [Mass/Vol] 0.46 mg/dL 0.00-1.30 [facility] CBC W/Diff, Automatedon 07-11 Absolute Lymph 1.34 X10 3/uL Normal 0.83-4.51 [facility] Comment on above: Performed By: #### L 100.0100, L500.4050, L500.4100 #### [facility] [address] [place], [address] Absolute Neut 3.8 X10 3/uL Normal 2.0-7.7 [facility] Comment on above: Performed By: #### L 100.0100, L500.4050, L500.4100 #### [facility] [address] [place], [address] Basophils/100 WBC (Bld) 0.7 % Normal 0-1 [facility] Comment on above: Performed By: #### L 100.0100, L500.4050, L500.4100 #### [facility] [address] [place], [address] Eosinophils/100 WBC (Bld) 2.8 % Normal 0-5 [facility] Comment on above: Performed By: #### L 100.0100, L500.4050, L500.4100 #### [facility] [address] [place], [address] Erythrocyte distribution width (RBC) [Ratio] 12.7 % Normal 11.6-14.6 [facility] Comment on above: Performed By: #### L 100.0100, L500.4050, L500.4100 #### [facility] [address] [place], [address] Hematocrit (Bld) [Volume fraction] 43.8 % Normal 40-54 [facility] Comment on above: Performed By: #### L 100.0100, L500.4050, L500.4100 #### [facility] [address] [place], [address] Hemoglobin (Bld) [Mass/Vol] 14.4 g/dL Normal 13.0-16.5 [facility] Comment on above: Performed By: #### L 100.0100, L500.4050, L500.4100 #### [facility] [address] [place], [address] IG% 0.200 Normal 0.0-0.9 [facility] Comment on above: Result Comment: IG% - Immature Granulocytes (promyelocytes, myelocytes and metamyelocytes) > 1% indicates that a LEFT SHIFT is Present. Performed By: #### L 100.0100, L500.4050, L500.4100 #### [facility] [address] [place], [address] Lymphocytes/100 WBC (Bld) 23.5 % Normal 19-41 [facility] Comment on above: Performed By: #### L 100.0100, L500.4050, L500.4100 #### [facility] [address] [place], [address] MCH (RBC) [Entitic mass] 29.6 pg Normal 27.0-32.0 [facility] Comment on above: Performed By: #### L 100.0100, L500.4050, L500.4100 #### [facility] [address] [place], [address] MCHC (RBC) [Mass/Vol] 32.9 g/dL Normal 32-36 [facility] Comment on above: Performed By: #### L 100.0100, L500.4050, L500.4100 #### [facility] [address] [place], [address] MCV (RBC) [Entitic vol] 90.1 fL Normal 80-94 [facility] Comment on above: Performed By: #### L 100.0100, L500.4050, L500.4100 #### [facility] [address] [place], [address] Monocytes/100 WBC (Bld) 7.0 % Normal 0-10 [facility] Comment on above: Performed By: #### L 100.0100, L500.4050, L500.4100 #### [facility] [address] [place], [address] Neutrophils/100 WBC (Bld) 65.8 % Normal 47-70 [facility] Comment on above: Performed By: #### L 100.0100, L500.4050, L500.4100 #### [facility] [address] [place], [address] Nucleated RBC (Bld) [#/Vol] 0 10*3/uL Normal 0-5 [facility] Comment on above: Performed By: #### L 100.0100, L500.4050, L500.4100 #### [facility] [address] [place], [address] Platelet mean volume (Bld) [Entitic vol] 9.4 fL Normal 6.2-12.0 [facility] Comment on above: Performed By: #### L 100.0100, L500.4050, L500.4100 #### [facility] [address] [place], [address] Platelets (Bld) [#/Vol] 241 10*3/uL Normal 150-450 [facility] Comment on above: Performed By: #### L 100.0100, L500.4050, L500.4100 #### [facility] [address] [place], [address] RBC (Bld) [#/Vol] 4.86 10*6/uL Normal 4.6-6.2 [facility] Comment on above: Performed By: #### L 100.0100, L500.4050, L500.4100 #### [facility] [address] [place], [address] RDW SD 42.0 fl Normal 35.1-43.9 [facility] Comment on above: Performed By: #### L 100.0100, L500.4050, L500.4100 #### [facility] [address] [place], [address] WBC (Bld) [#/Vol] 5.7 10*3/uL Normal 4.4-11.0 [facility] Comment on above: Performed By: #### L 100.0100, L500.4050, L500.4100 #### [facility] [address] [place], [address] Calculated very low density lipoprotein (VLDL) cholesterol measurementOrdered By: Michael Soto on 08-04-2024 Calculated very low density lipoprotein (VLDL) cholesterol measurement 10 mg/dL 5-40 [facility] VLDL Cholesterol 10 mg/dL 5-40 [facility] Carbon dioxide measurementOr dered By: Michael Soto on 08-04-2024 CO2 [Moles/Vol] 24.2 mmol/L 22.0-29.0 [facility] Chloride measurementOrdered By: Michael Soto on 08-04-2024 Chloride [Moles/Vol] 103 mmol/L 96-108 [facility] Comprehensive Metabolic Prof ilon 08-04-2024 Albumin [Mass/Vol] 4.1 g/dL Normal 3.4-4.8 [facility] Comment on above: Performed By: #### L 100.0100, L500.4050, L500.4100 #### [facility] [address] [place], [address] Albumin/Globulin [Mass ratio] 1.8 {ratio} Normal 0.9-2.4 [facility] Comment on above: Performed By: #### L 100.0100, L500.4050, L500.4100 #### [facility] [address] [place], [address] ALK PHOS 70 U/L Normal 40-129 [facility] Comment on above: Performed By: #### L 100.0100, L500.4050, L500.4100 #### [facility] [address] [place], [address] ALT [Catalytic activity/Vol] 13 U/L Normal <=46 [facility] Comment on above: Performed By: #### L 100.0100, L500.4050, L500.4100 #### [facility] [address] [place], [address] Anion gap [Moles/Vol] 13 mmol/L Normal 5-15 [facility] Comment on above: Performed By: #### L 100.0100, L500.4050, L500.4100 #### [facility] [address] [place], [address] AST [Catalytic activity/Vol] 24 U/L Normal <=37 [facility] Comment on above: Performed By: #### L 100.0100, L500.4050, L500.4100 #### [facility] [address] [place], [address] Bilirubin [Mass/Vol] 0.46 mg/dL Normal 0.00-1.30 [facility] Comment on above: Performed By: #### L 100.0100, L500.4050, L500.4100 #### [facility] [address] [place], [address] BUN/CRE 19.6 RATIO Normal 10-20 [facility] Comment on above: Performed By: #### L 100.0100, L500.4050, L500.4100 #### [facility] [address] [place], [address] Calcium [Mass/Vol] 9.2 mg/dL Normal 7.6-11.0 [facility] Comment on above: Performed By: #### L 100.0100, L500.4050, L500.4100 #### [facility] [address] [place], [address] Chloride [Moles/Vol] 103 mmol/L Normal 96-108 [facility] Comment on above: Performed By: #### L 100.0100, L500.4050, L500.4100 #### [facility] [address] [place], [address] CO2 [Moles/Vol] 24.2 mmol/L Normal 22.0-29.0 [facility] Comment on above: Performed By: #### L 100.0100, L500.4050, L500.4100 #### [facility] [address] [place], [address] Creatinine [Mass/Vol] 1.1 mg/dL Normal 0.8-1.3 [facility] Comment on above: Performed By: #### L 100.0100, L500.4050, L500.4100 #### [facility] [address] [place], [address] GFR/1.73 sq M.predicted among non-blacks MDRD (S/P/Bld) [Vol rate/Area] 72 mL/min/{1.73_m2} Normal >60 [facility] Comment on above: Result Comment: mL/m in/1.73m2 CKD-EPI Creatinine Equation (2020) Performed By: #### L 100.0100, L500.4050, L500.4100 #### [facility] [address] [place], [address] Globulin (S) [Mass/Vol] 2.3 g/dL Normal 2.2-4.2 [facility] Comment on above: Performed By: #### L 100.0100, L500.4050, L500.4100 #### [facility] [address] [place], [address] Glucose [Mass/Vol] 87 mg/dL Normal 70-99 [facility] Comment on above: Performed By: #### L 100.0100, L500.4050, L500.4100 #### [facility] [address] [place], [address] Potassium [Moles/Vol] 4.2 mmol/L Normal 3.3-5.1 [facility] Comment on above: Performed By: #### L 100.0100, L500.4050, L500.4100 #### [facility] [address] [place], [address] Sodium [Moles/Vol] 140 mmol/L Normal 133-145 [facility] Comment on above: Performed By: #### L 100.0100, L500.4050, L500.4100 #### [facility] [address] [place], [address] T PROT 6.4 g/dL Normal 5.9-8.4 [facility] Comment on above: Performed By: #### L 100.0100, L500.4050, L500.4100 #### [facility] [address] [place], [address] Urea nitrogen [Mass/Vol] 22 mg/dL High 4-19 [facility] Comment on above: Performed By: #### L 100.0100, L500.4050, L500.4100 #### [facility] [address] [place], [address] Eosinophil percentageOrdered By: Michael Soto on 08-04-2024 Eosinophils/100 WBC (Bld) 2.8 % 0-5 [facility] Erythrocyte distribution wid th ratioOrdered By: Michael Soto on 08-04-2024 Erythrocyte distribution width (RBC) [Ratio] 12.7 % 11.6-14.6 [facility] Erythrocyte distribution wid th standard deviationOrdered By: Michael Soto on 08-04-2024 Erythrocyte distribution width (RBC) [Entitic vol] 42.0 fL 35.1-43.9 [facility] Erythrocyte distribution width (RBC) [Ratio] 42.0 fl 35.1-43.9 [facility] GFR/1.73 sq M.predicted bret g non-blacks MDRD (S/P/Bld) [Vol rate/Area]Ordered By: Michael Soto on 08-04-2024 Estimated GFR (MDRD) Non-Af Amer 72 >60 [facility] Comment on above: mL/min/1.73m2 CKD-EP I Creatinine Equation (2020) Glomerular filtration rate ( GFR) estimation/1.73 sq m using serum, plasma, or whole bOrdered By: Michael Soto on 08-04-2024 GFR/1.73 sq M.predicted among non-blacks MDRD (S/P/Bld) [Vol rate/Area] 72 mL/min/{1.73_m2} >60 [facility] Comment on above: mL/min/1.73m2 CKD-EP I Creatinine Equation (2020) Hematocrit Auto (Bld) [Volum e fraction]Ordered By: Michael Soto on 08-04-2024 Hematocrit (Bld) [Volume fraction] 43.8 % 40-54 [facility] Hemoglobin measurementOrdere d By: Michael Soto on 08-04-2024 Hemoglobin (Bld) [Mass/Vol] 14.4 g/dL 13.0-16.5 [facility] Immature granulocytes/100 WB C Auto (Bld)Ordered By: Michael Soto on 08-04-2024 Immature granulocytes/100 WBC (Bld) 0.200 % 0.0-0.9 [facility] Comment on above: IG% - Immature Granu locytes (promyelocytes, myelocytes and metamyelocytes) > 1% indicates that a LEFT SHIFT is Present. LDL calc ser/plasOrdered By: Michael Soto on 08-04-2024 Cholesterol in LDL [Mass/Vol] 121 mg/dL [facility] Comment on above: Gpcmtyweck=447-766 m g/dL & Higher Jxji=241 mg/dL or greater LDL Cholesterol, Calculated 121 mg/dL [facility] Comment on above: Peiguaynan=979-464 m g/dL & Higher Wufk=391 mg/dL or greater Laboratory - Chemistry and C hemistry - challengeOrdered By: Michael Soto on 08-04-2024 AST [Catalytic activity/Vol] 24 U/L <38 [facility] Lipid Profileon 08-04-2024 CHOL:HDL 3.27 Normal [facility] Comment on above: Performed By: #### L 100.0100, L500.4050, L500.4100 #### [facility] [address] [place], [address] Cholesterol [Mass/Vol] 189 mg/dL Normal <=200 [facility] Comment on above: Result Comment: Chol esterol level, Desirable <200 mg/dL Borderline high cholesterol 200-239 mg/dL High cholesterol >=240 mg/dL Recommendations of the NCEP Adult Treatment Panel for the following risk-cutoff thresholds for the [place] population. Performed By: #### L 100.0100, L500.4050, L500.4100 #### [facility] [address] [place], [address] Cholesterol in HDL [Mass/Vol] 58 mg/dL Normal [facility] Comment on above: Result Comment: Dora onal Cholesterol Education Program (NCEP) guidelines: <40 mg/dL: Low HDL-cholesterol (major risk factor for CHD) >= 60 mg/dL: High HDL-cholesterol (negative risk factor for CHD) HDL-cholesterol is affected by a number of factors, e.g. smoking, exercise, hormones, sex and age. Performed By: #### L 100.0100, L500.4050, L500.4100 #### [facility] [address] [place], [address] Cholesterol in LDL [Mass/Vol] 121 mg/dL Normal [facility] Comment on above: Result Comment: Bord ghpfov=992-346 mg/dL Higher Patd=733 mg/dL or greater Performed By: #### L 100.0100, L500.4050, L500.4100 #### [facility] [address] [place], [address] Cholesterol in VLDL [Mass/Vol] 10 mg/dL Normal 5-40 [facility] Comment on above: Performed By: #### L 100.0100, L500.4050, L500.4100 #### [facility] [address] [place], [address] Triglyceride [Mass/Vol] 49 mg/dL Normal [facility] Comment on above: Result Comment: The drugs N-Acetylcysteine and Metamizole may falsely depress this assay. Normal range: <150 mg/dL Borderline High: 150-199 mg/dL High: 200-499 mg/dL Very High: >500 mg/dL Performed By: #### L 100.0100, L500.4050, L500.4100 #### [facility] [address] [place], [address] Lymphocytes Auto (Unsp spec) [#/Vol]Ordered By: Michael Soto on 08-04-2024 Lymphocytes (Bld) [#/Vol] 1.34 10*3/uL 0.83-4.5 1 [facility] Lymphocytes/100 WBC Auto (Un sp spec)Ordered By: Michael Soto on 08-04-2024 Lymphocytes/100 WBC (Bld) 23.5 % 19-41 [facility] MCV (mean corpuscular volume ) determinationOrdered By: Michael Soto on 08-04-2024 MCV (RBC) [Entitic vol] 90.1 fL 80-94 [facility] Mean corpuscular hemoglobin (MCH) determinationOrdered By: Michael Soto on 08-04-2024 MCH (RBC) [Entitic mass] 29.6 pg 27.0-32.0 [facility] Mean corpuscular hemoglobin concentration (MCHC) determinationOrdered By: Michael Soto on 08-04-2024 MCHC (RBC) [Mass/Vol] 32.9 g/dL 32-36 [facility] Mean platelet volume determi nationOrdered By: Michael Soto on 08-04-2024 Platelet mean volume (Bld) [Entitic vol] 9.4 fL 6.2-12.0 [facility] Monocyte percentageOrdered B y: Michael Soto on 08-04-2024 Monocytes/100 WBC (Bld) 7.0 % 0-10 [facility] Neutrophil percentageOrdered By: Michael Soto on 08-04-2024 Neutrophils/100 WBC (Bld) 65.8 % 47-70 [facility] Nucleated red blood cell per centageOrdered By: Michael Soto on 08-04-2024 Nucleated RBC/100 WBC (Bld) [Ratio] 0 % 0-5 [facility] Platelet countOrdered By: Ben Soto on 08-04-2024 Platelets (Bld) [#/Vol] 241 10*3/uL 150-450 [facility] RBC Auto (Bld) [#/Vol]Ordere d By: Michael Soto on 08-04-2024 RBC (Bld) [#/Vol] 4.86 10*6/uL 4.6-6.2 [facility] Screening total cholesterol/ high density lipoprotein (HDL) cholesterol ratioOrdered By: Michael Soto on 08-04-2024 Cholesterol.total/Cholest leda in HDL [Mass ratio] 3.27 {ratio} [facility] Serum creatinine measurement (mass/volume)Ordered By: Michael Soto on 08-04-2024 Creatinine [Mass/Vol] 1.1 mg/dL 0.70-1.20 [facility] Serum globulin measurementOr dered By: Michael Soto on 08-04-2024 Globulin (S) [Mass/Vol] 2.3 g/dL 2.2-4.2 [facility] Serum glucose measurement (m ass/volume)Ordered By: Michael Soto on 08-04-2024 Glucose [Mass/Vol] 87 mg/dL 70-99 [facility] Serum or plasma alanine guzman otransferase (ALT) measurementOrdered By: Michael Soto on 08-04-2024 ALT [Catalytic activity/Vol] 13 U/L <47 [facility] Serum or plasma albumin enriqueta urement (mass/volume)Ordered By: Michael Soto on 08-04-2024 Albumin [Mass/Vol] 4.1 g/dL 3.4-4.8 [facility] Serum or plasma albumin/glob ulin mass ratioOrdered By: Michael Soto on 08-04-2024 Albumin/Globulin [Mass ratio] 1.8 {ratio} 0.9-2.4 [facility] Serum or plasma alkaline christa sphatase measurementOrdered By: Michael Soto on 08-04-2024 ALP [Catalytic activity/Vol] 70 U/L 40-129 [facility] Serum or plasma anion gap de termination (moles/volume)Ordered By: Michael Soto on 08-04-2024 Anion gap [Moles/Vol] 13 mmol/L 5-15 [facility] Serum or plasma calcium enriqueta urement (mass/volume)Ordered By: Michael Soto on 08-04-2024 Calcium [Mass/Vol] 9.2 mg/dL 7.6-11.0 [facility] Serum or plasma cholesterol in HDL measurement (mass/volume)Ordered By: Michael Soto on 08-04-2024 Cholesterol in HDL [Mass/Vol] 58 mg/dL >40 [facility] Comment on above: National Cholesterol Education Program (NCEP) guidelines:<40 mg/dL: Low HDL-cholesterol (major risk factor for CHD)>= 60 mg/dL: High HDL-cholesterol (negative risk factor for CHD)HDL-cholesterol is affected by a number of factors, e.g. smoking, exercise, hormones, sex and age. Serum or plasma cholesterol measurement (mass/volume)Ordered By: Michael Soto on 08-04-2024 Cholesterol [Mass/Vol] 189 mg/dL <201 [facility] Comment on above: Cholesterol level, D esirable <200 mg/dLBorderline high cholesterol 200-239 mg/dLHigh cholesterol >=240 mg/dLRecommendations of the NCEP Adult Treatment Panel for the following risk-cutoff thresholds for the [place] population. Serum or plasma potassium me asurementOrdered By: Michael Soto on 08-04-2024 Potassium [Moles/Vol] 4.2 mmol/L 3.3-5.1 [facility] Serum or plasma sodium measu rement (moles/volume)Ordered By: Michael Soto on 08-04-2024 Sodium [Moles/Vol] 140 mmol/L 133-145 [facility] Serum or plasma urea nitroge n measurement (mass/volume)Ordered By: Michael Soto on 08-04-2024 Urea nitrogen [Mass/Vol] 22 mg/dL High 4-19 [facility] Total proteinOrdered By: Radha Soto on 08-04-2024 Protein [Mass/Vol] 6.4 g/dL 5.9-8.4 [facility] Triglycerides measurementOrd ered By: Michael Soto on 08-04-2024 Triglyceride [Mass/Vol] 49 mg/dL <199 [facility] Comment on above: The drugs N-Acetylcy steine and Metamizole may falsely depress this assay. Normal range: <150 mg/dLBorderline High: 150-199 mg/dLHigh: 200-499 mg/dLVery High: >500 mg/dL White blood cell (WBC) count Ordered By: Michael Soto on 08-04-2024 WBC (Bld) [#/Vol] 5.7 10*3/uL 4.4-11.0 [facility] Inital Evaluation (1) - PTon 01-12-2024 Inital Evaluation (1) - PT [facility] [address] [place] [address]. [address] [place] [address] / REHABILITATION SERVICES INITIAL EVALUATION MR#: [id number] Acct: [id number] Name: SHEKHAR THOMPSON Rep #: [id number] : 1955 68 From: Wilyl Dhillon DPT Referring Dr.: Dr. Michael Soto, DO Status: RE G RCR Insurance: MEDICARE PART A B [employer] SR SUPPLEMENT INS Patient's Visit Information Visit Information Visit Information: SHEKHAR THOMPSON is a 68 year old M referred to Physical Therapy by Dr. Michael Soto DO with a diagnosis of L meniscal derangement. Date of Evaluation: 01/08/24 Physical Therapist: Willy Dhillon DPT Visit Plan Frequency: 1x/Week Duration: 4 Weeks Plan: Work on glute max and glute medius strengthening. Add in core strength. Educate on proper squat mechanics and limit depth for better tolerance. As Pt. progresses add in walk to jog program as tolerated. Subjective Subjective: Pt. is here today for his initial evaluation with diagnosis of L meniscal derangement. Pt. reports having a chronic meniscal tear. Pt. report overall doing okay, but over the past few weeks he has had more knee pain resulting in more walking than running. He reports that he loves to run and would rather not give it up. He also does calisthenics, alternating between the two. He reports having difficulty with squatting. Pt. reports no injections. 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 Pt. reports doing some strengthening and keeping his pain low. He is hopeful to do the same. No N/T noted. Pain L knee: Pain Intensity (Out of 10): 2 Pain Intensity Range: 0 and 4 Objective Objective: POSTURE: Pt. has decent posture in stance. Normal and equal WBing. No major valgus/varus positioning. PALPATION: Pt. has minimal pain with palpation of L knee joint line. No mild pain with posterior lateral knee, near lateral insertion of HS. NEURO: normal throughout. ROM: Pt. has great ROM in B knees without increase in symptoms. Mild pain iwth L knee flexion with deep over pressure. Good hip flexor and HS length noted. MMT: Pt. has equal and decent strength throughout BLEs. Slight weakness in B glutes and hip abductors. GAIT: normal gait pattern. Pt. has normal squat pattern. He was able to deep squat, but did favor his LLE with initially rising from depth of squat. Mild increase in pain noted as well. Special Tests L Knee Kathia - Meniscus: Positive L Knee Disco Test - Meniscus: Positive Balance/Special Test Scores Lower Extremity Functional Score: 70 Goals Goal 1:: STG: Pt. to be I with all glute max/medius HEP. Goal Time Frame: 2 Weeks Goal 2:: STG: Pt. to initiate a walk to jog program without increase in symptoms. 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 Goal Time Frame: 2-4 Weeks Rehabilitation Potential Physical Therapy Diagnosis: Pt. has signs and symptoms consistent with L meniscal derangement. Pt. has overall good ROM and decent strength. I did mention to hip about progressing his hip and glute strength, but also some activity modifications. Rehabilitation Potential: Good Anticipated Interventions Patient/Client Instruction: Educate patient on: Condition, Plan of Care, Risk Factors and Benefits of Fitness Program For the Purpose of:: To foster healthy habits, To improve decision making, To facilitate caregiver knowledge, To improve self management, To prevent re-injury and To improve ability to perform tasks related to life management Therapeutic Exercise to Include: Strength training, Power training, Agility training, Body mechanics, Flexibilty training and Dynamic Lumbar Stabilization For the Purpose of:: To decrease pain, To increase ROM, To improve nutrient delivery to tissue, To increase oxygenation perfusion, To improve muscle performance and motor function, To improve ability to perform ADL's, To increase tolerance to activity/condition/ position, To decrease level of supervision to perform tasks, To improve gait and locomotor functions and To improve health of tissue Text: Thank you for the opportunity to evaluate your patient. For Medicare and Medicare HMO plans, please review the plan of care and approve it. It will need to be FAXED BACK to us at [phone] for Medicare purposes. For Medicare only, by signing this I certify the plan of care. Please let me know if there are questions or concerns regarding this plan of care. Physician Signature: __Date: 01/12/24 1653 CC: Dr. Michael Soto DO CLS Signed Normal [facility] Basophil percentageOrdered B y: Juanito Potts on 10-13-2023 Basophil percentage 1.03 ng/mL 0.0-4.0 [facility] Comment on above: This test was perfor med using the TPSA assay method for the[employer] chemistry system. Values obtained with differentassay methods cannot be used interchangably.When changing PSA assays in the course of monitoring apatient, additional sequential testing should be carriedout to confirm baseline values. Basophil percentageOrdered B y: Juanito Potts on 06-07-2023 Chloride [Moles/Vol] 107 mmol/L 98-107 [facility] Glucose [Mass/Vol] 108 mg/dL 74-106 [facility] Comment on above: Fasting Glucose resu lt from 100 to 125 mg/dL suggests IMPAIRED HOMEOSTASIS per A.D.A. criteria. Potassium [Moles/Vol] 4.7 mmol/L 3.5-5.1 [facility] Sodium [Moles/Vol] 138 mmol/L 136-145 [facility] WBC (Bld) [#/Vol] 10.4 10*3/uL 4.4-11.0 [facility] Blood erythrocytes count (nu mber/volume)Ordered By: Juanito Potts on 06-07-2023 RBC (Bld) [#/Vol] 3.26 10*6/uL 4.6-6.2 [facility] Blood hemoglobin measurement (mass/volume)Ordered By: Juanito Potts on 06-07-2023 Hemoglobin (Bld) [Mass/Vol] 10.0 g/dL 13.0-16.5 [facility] Blood platelet mean volumeOr dered By: Juanito Potts on 06-07-2023 Platelet mean volume (Bld) [Entitic vol] 9.0 fL 6.2-12.0 [facility] Determination of erythrocyte mean corpuscular volume (MCV)Ordered By: Juanito Potts on 06-07-2023 MCV (RBC) [Entitic vol] 92.3 fL 80-94 [facility] Hematocrit Auto (Bld) [Volum e fraction]Ordered By: Juanito Potts on 06-07-2023 Hematocrit (Bld) [Volume fraction] 30.1 % 40-54 [facility] Laboratory - Chemistry and C hemistry - challengeOrdered By: Juanito Potts on 06-07-2023 CO2 [Moles/Vol] 27.0 mmol/L 21.0-32.0 [facility] Urea nitrogen/Creatinine [Mass ratio] 16.5 mg/mg 10-20 [facility] - Hematology and Cell countsOrdered By: Juanito Potts on 06-07-2023 Erythrocyte distribution width (RBC) [Entitic vol] 47.1 fL 35.1-43.9 [facility] Erythrocyte distribution width (RBC) [Ratio] 14.0 % 11.6-14.6 [facility] MCH (RBC) [Entitic mass] 30.7 pg 27.0-32.0 [facility] MCHC Auto (RBC) [Mass/Vol]Or dered By: Juanito Potts on 06-07-2023 MCHC (RBC) [Mass/Vol] 33.2 g/dL 32-36 [facility] No Panel InformationOrdered By: Juanito Potts on 06-07-2023 Estimated Creatinine Clearance Calc 53.24 ml/min [facility] Estimated GFR (MDRD) Amer 65 mL/min >60 [facility] Comment on above: GFR Calc Estimated GFR (MDRD) Non-Af Amer 54 mL/min >60 [facility] Comment on above: Non- GFR Calc Platelets bldOrdered By: Michele Potts on 06-07-2023 Platelets (Bld) [#/Vol] 261 10*3/uL 150-450 [facility] Serum or plasma calcium enriqueta urement (mass/volume)Ordered By: Juanito Potts on 06-07-2023 Calcium [Mass/Vol] 8.3 mg/dL 8.5-10.1 [facility] Serum or plasma creatinine m easurement (mass/volume)Ordered By: Juanito Potts on 06-07-2023 Creatinine [Mass/Vol] 1.39 mg/dL 0.70-1.30 [facility] Comment on above: The validity of the calculated GFR & GFRAA in patients over 70 years has not been determined. Clinical correlation is essential. Serum or plasma urea nitroge n measurement (mass/volume)Ordered By: Juanito Potts on 06-07-2023 Urea nitrogen [Mass/Vol] 23 mg/dL 7-18 [facility] Thin prep Papanicolaou smear with manual screeningOrdered By: Juanito Potts on 06-07-2023 Thin prep Papanicolaou smear with manual screening 4 5-15 [facility] Basophil percentageOrdered B y: Ambar Westfall on 05-17-2023 Basophil percentage >100 SEEN /hpf 0-5 [facility] Bilirubin Test strip Ql (U)O rdered By: Ambar Westfall on 05-17-2023 Bilirubin Ql (U) Negative Negative [facility] Culture, urineOrdered By: Magi Westfall on 05-17-2023 Bacteria identified Cx Nom (U) Staphylococcus aureus [facility] Ketones Test strip Ql (U)Ord ered By: Ambar Westfall on 05-17-2023 Ketones Ql (U) Negative Negative [facility] Laboratory - Chemistry and C hemistry - challengeon 05-17-2023 Bilirubin Ql (U) Negative [facility] Glucose Ql (U) Negative [facility] Ketones Ql (U) Negative [facility] pH (U) 6.0 [pH] [facility] Specific gravity (U) [Rel density] 1.010 [facility] Urobilinogen (U) [Mass/Vol] Negative [facility] Laboratory - Hematology and Cell countson 05-17-2023 Hemoglobin Ql (U) Hemolyzed [facility] - Specimen inform ationon 05-17-2023 Clarity (U) Cloudy [facility] Color (U) YELLOW [facility] Laboratory - Urinalysison Nitrite Ql (U) Negative [facility] Protein Ql (U) 1+ [facility] Mucus LM Ql (Urine sed)Order ed By: Ambar Westfall on 05-17-2023 Mucus Ql (Urine sed) 0 SEEN /hpf [facility] Nitrite Test strip Ql (U)Ord ered By: Ambar Westfall on 05-17-2023 Nitrite Ql (U) Negative Negative [facility] No Panel Informationon 05-17 Urine Leukocytes Positive [facility] Urine Non-Hemolyzed Blood Large [facility] Protein Test strip Ql (U)Ord ered By: Ambar Westfall on 05-17-2023 Protein Ql (U) 100 mg/dl Negative [facility] Squamous epithelial cells de tection in urine sediment by light microscopyOrdered By: Ambar Westfall on 05-17-2023 Epithelial cells.squamous LM Ql (Urine sed) 0 SEEN /hpf 0-5 [facility] Urine blood detectionOrdered By: Ambar Westfall on 05-17-2023 RBC Ql (U) 150 /ul Negative [facility] RBC Ql (U) 0 SEEN /hpf 0-5 [facility] Urine clarityOrdered By: Venkat Westfall on 05-17-2023 Clarity (U) Clear Clear [facility] Urine color determinationOrd ered By: Ambar Westfall on 05-17-2023 Color (U) Yellow Yellow [facility] Urine glucose detectionOrder ed By: Ambar Westfall on 05-17-2023 Glucose Ql (U) Normal mg/dl Normal [facility] Urine leukocyte esterase det ection by dipstickOrdered By: Ambar Westfall on 05-17-2023 Leukocyte esterase Test strip Ql (U) 500 /ul Negative [facility] Urine pHOrdered By: Ambar Westfall on 05-17-2023 pH (U) 6.0 [pH] 5.0 - 8.0 [facility] Urine sediment bacteria coun t by microscopy (number/high power field)Ordered By: Ambar Westfall on 05-17-2023 Bacteria LM.HPF (Urine sed) [#/Area] 0 /[HPF] None Seen [facility] Urine specific gravity measu rementOrdered By: Ambar Westfall on 05-17-2023 Specific gravity (U) [Rel density] 1.010 1.002-1.030 [facility] Urobilinogen Auto test strip Ql (U)Ordered By: Ambar Westfall on 05-17-2023 Urobilinogen Ql (U) Normal mg/dl Normal [facility] Absolute lymphocyte countOrd ered By: Dylon Arteaga on 04-24-2023 Lymphocytes Auto (Unsp spec) [#/Vol] 0.98 10*3/uL 0.83-4.51 [facility] Basophil percentageOrdered B y: Dylon Arteaga on 11-16-2023 Basophils/100 WBC (Bld) 0.6 % 0-1 [facility] Chloride [Moles/Vol] 109 mmol/L 98-107 [facility] Eosinophils/100 WBC (Bld) 3.2 % 0-5 [facility] Glucose [Mass/Vol] 91 mg/dL 74-106 [facility] Neutrophils (Bld) [#/Vol] 3.7 10*3/uL 2.0-7.7 [facility] Neutrophils/100 WBC (Bld) 69.9 % 47-70 [facility] Potassium [Moles/Vol] 4.6 mmol/L 3.5-5.1 [facility] Sodium [Moles/Vol] 142 mmol/L 136-145 [facility] WBC (Bld) [#/Vol] 5.3 10*3/uL 4.4-11.0 [facility] Basophil percentage 0 SEEN /hpf 0-5 [facility] Basophil percentageOrdered B y: Elvirabernarda Frazier on 04-24-2023 Creatinine [Mass/Vol] 1.2 mg/dL 0.70-1.30 [facility] Bilirubin Test strip Ql (U)O rdered By: Dylon Arteaga on 04-24-2023 Bilirubin Ql (U) Negative Negative [facility] Blood erythrocytes count (nu mber/volume)Ordered By: Dylon Arteaga on 04-24-2023 RBC (Bld) [#/Vol] 3.66 10*6/uL 4.6-6.2 [facility] Blood hemoglobin measurement (mass/volume)Ordered By: Dylon Arteaga on 04-24-2023 Hemoglobin (Bld) [Mass/Vol] 11.1 g/dL 13.0-16.5 [facility] Blood lymphocytes/100 leukoc ytesOrdered By: Dylon Arteaga on 04-24-2023 Lymphocytes/100 WBC (Bld) 18.5 % 19-41 [facility] Blood monocytes/100 leukocyt esOrdered By: Dylon Arteaga on 04-24-2023 Monocytes/100 WBC (Bld) 7.4 % 0-10 [facility] Blood platelet mean volumeOr dered By: Dylon Arteaga on 04-24-2023 Platelet mean volume (Bld) [Entitic vol] 10.3 fL 6.2-12.0 [facility] Determination of erythrocyte mean corpuscular volume (MCV)Ordered By: Dylon Arteaga on 04-24-2023 MCV (RBC) [Entitic vol] 94.8 fL 80-94 [facility] Hematocrit Auto (Bld) [Volum e fraction]Ordered By: Dylon Arteaga on 04-24-2023 Hematocrit (Bld) [Volume fraction] 34.7 % 40-54 [facility] Ketones Test strip Ql (U)Ord ered By: Dylon Arteaga on 04-24-2023 Ketones Ql (U) Negative Negative [facility] Laboratory - Chemistry and C hemistry - challengeOrdered By: Dylon Arteaga on 04-24-2023 CO2 [Moles/Vol] 30.0 mmol/L 21.0-32.0 [facility] Urea nitrogen/Creatinine [Mass ratio] 15.9 mg/mg 10-20 [facility] - Hematology and Cell countsOrdered By: Dylon Arteaga on 04-24-2023 Erythrocyte distribution width (RBC) [Entitic vol] 44.4 fL 35.1-43.9 [facility] Erythrocyte distribution width (RBC) [Ratio] 12.8 % 11.6-14.6 [facility] Immature granulocytes/100 WBC (Bld) 0.400 % 0.0-0.9 [facility] Comment on above: IG% - Immature Granu locytes (promyelocytes, myelocytes and metamyelocytes) > 1% indicates that a LEFT SHIFT is Present. MCH (RBC) [Entitic mass] 30.3 pg 27.0-32.0 [facility] Nucleated RBC/100 WBC (Bld) [Ratio] 0 % 0-5 [facility] MCHC Auto (RBC) [Mass/Vol]Or dered By: Dylon Arteaga on 04-24-2023 MCHC (RBC) [Mass/Vol] 32.0 g/dL 32-36 [facility] Mucus LM Ql (Urine sed)Order ed By: Dylon Arteaga on 04-24-2023 Mucus Ql (Urine sed) 0 SEEN /hpf [facility] Nitrite Test strip Ql (U)Ord ered By: Dylon Arteaga on 04-24-2023 Nitrite Ql (U) Negative Negative [facility] No Panel InformationOrdered By: Dylon Arteaga on 04-24-2023 Estimated Creatinine Clearance Calc 45.65 ml/min [facility] Estimated GFR (MDRD) Amer 52 mL/min >60 [facility] Comment on above: GFR Calc Estimated GFR (MDRD) Non-Af Amer 43 mL/min >60 [facility] Comment on above: Non- GFR Calc No Panel InformationOrdered By: Elvira Frazier on 04-24-2023 Bedside Estimated GFR (eGFR) > 60.0000 mL/min >60 [facility] Platelets bldOrdered By: Elke Arteaga on 04-24-2023 Platelets (Bld) [#/Vol] 156 10*3/uL 150-450 [facility] Protein Test strip Ql (U)Ord ered By: Dylon Arteaga on 04-24-2023 Protein Ql (U) Negative Negative [facility] Serum or plasma calcium enriqueta urement (mass/volume)Ordered By: Dylon Arteaga on 04-24-2023 Calcium [Mass/Vol] 8.2 mg/dL 8.5-10.1 [facility] Serum or plasma creatinine m easurement (mass/volume)Ordered By: Dylon Arteaga on 04-24-2023 Creatinine [Mass/Vol] 1.70 mg/dL 0.70-1.30 [facility] Comment on above: The validity of the calculated GFR & GFRAA in patients over 70 years has not been determined. Clinical correlation is essential. Serum or plasma urea nitroge n measurement (mass/volume)Ordered By: Dylon Arteaga on 04-24-2023 Urea nitrogen [Mass/Vol] 27 mg/dL 7-18 [facility] Squamous epithelial cells de tection in urine sediment by light microscopyOrdered By: Dylon Arteaga on 04-24-2023 Epithelial cells.squamous LM Ql (Urine sed) 0 SEEN /hpf 0-5 [facility] Thin prep Papanicolaou smear with manual screeningOrdered By: Dylon Arteaga on 04-24-2023 Thin prep Papanicolaou smear with manual screening 3 5-15 [facility] Urine blood detectionOrdered By: Dylon Arteaga on 04-24-2023 RBC Ql (U) Negative Negative [facility] RBC Ql (U) 0 SEEN /hpf 0-5 [facility] Urine clarityOrdered By: Elke Arteaga on 04-24-2023 Clarity (U) Clear Clear [facility] Urine color determinationOrd ered By: Dylon Arteaga on 04-24-2023 Color (U) Yellow Yellow [facility] Urine glucose detectionOrder ed By: Dylon Arteaga on 04-24-2023 Glucose Ql (U) Normal mg/dl Normal [facility] Urine leukocyte esterase det ection by dipstickOrdered By: Dylon Arteaga on 04-24-2023 Leukocyte esterase Test strip Ql (U) Negative Negative [facility] Urine pHOrdered By: Dylon saez on 04-24-2023 pH (U) 6.0 [pH] 5.0 - 8.0 [facility] Urine sediment bacteria coun t by microscopy (number/high power field)Ordered By: Dylon Arteaga on 04-24-2023 Bacteria LM.HPF (Urine sed) [#/Area] 0 /[HPF] None Seen [facility] Urine specific gravity measu rementOrdered By: Dylon Arteaga on 04-24-2023 Specific gravity (U) [Rel density] 1.010 1.002-1.030 [facility] Urobilinogen Auto test strip Ql (U)Ordered By: Dylon Arteaga on 04-24-2023 Urobilinogen Ql (U) Normal mg/dl Normal [facility] Absolute lymphocyte countOrd ered By: Michael Soto on 12-17-2022 Lymphocytes Auto (Unsp spec) [#/Vol] 1.01 10*3/uL 0.83-4.51 [facility] Basophil percentageOrdered B y: Michael Soto on 12-17-2022 Basophils/100 WBC (Bld) 0.9 % 0-1 [facility] Bilirubin [Mass/Vol] 0.40 mg/dL 0.20-1.00 [facility] Comment on above: For patients on eltr ombopag therapy, use of Dimension [place] TBIL is not recommended. Chloride [Moles/Vol] 108 mmol/L 98-107 [facility] Eosinophils/100 WBC (Bld) 1.3 % 0-5 [facility] Glucose [Mass/Vol] 83 mg/dL 74-106 [facility] Neutrophils (Bld) [#/Vol] 3.1 10*3/uL 2.0-7.7 [facility] Neutrophils/100 WBC (Bld) 67.5 % 47-70 [facility] Potassium [Moles/Vol] 4.2 mmol/L 3.5-5.1 [facility] Protein [Mass/Vol] 6.6 g/dL 6.4-8.2 [facility] Sodium [Moles/Vol] 139 mmol/L 136-145 [facility] WBC (Bld) [#/Vol] 4.7 10*3/uL 4.4-11.0 [facility] Blood erythrocytes count (nu mber/volume)Ordered By: Michael Soto on 12-17-2022 RBC (Bld) [#/Vol] 4.51 10*6/uL 4.6-6.2 [facility] Blood hemoglobin measurement (mass/volume)Ordered By: Michael Soto on 12-17-2022 Hemoglobin (Bld) [Mass/Vol] 13.9 g/dL 13.0-16.5 [facility] Blood lymphocytes/100 leukoc ytesOrdered By: Michael Soto on 12-17-2022 Lymphocytes/100 WBC (Bld) 21.7 % 19-41 [facility] Blood monocytes/100 leukocyt esOrdered By: Michael Soto on 12-17-2022 Monocytes/100 WBC (Bld) 8.4 % 0-10 [facility] Blood platelet mean volumeOr dered By: Michael Soto on 12-17-2022 Platelet mean volume (Bld) [Entitic vol] 10.1 fL 6.2-12.0 [facility] Determination of erythrocyte mean corpuscular volume (MCV)Ordered By: Michael Soto on 12-17-2022 MCV (RBC) [Entitic vol] 94.0 fL 80-94 [facility] Hematocrit Auto (Bld) [Volum e fraction]Ordered By: Michael Soto on 12-17-2022 Hematocrit (Bld) [Volume fraction] 42.4 % 40-54 [facility] - Chemistry and C hemistry - challengeOrdered By: Michael Soto on 12-17-2022 ALP [Catalytic activity/Vol] 66 U/L 45-117 [facility] ALT [Catalytic activity/Vol] 21 U/L 16-61 [facility] CO2 [Moles/Vol] 29.0 mmol/L 21.0-32.0 [facility] Globulin (S) [Mass/Vol] 3.1 g/dL 2.2-4.2 [facility] Urea nitrogen/Creatinine [Mass ratio] 17.8 mg/mg 10-20 [facility] - Hematology and Cell countsOrdered By: Michael Soto on 12-17-2022 Erythrocyte distribution width (RBC) [Entitic vol] 44.5 fL 35.1-43.9 [facility] Erythrocyte distribution width (RBC) [Ratio] 12.7 % 11.6-14.6 [facility] Immature granulocytes/100 WBC (Bld) 0.200 % 0.0-0.9 [facility] Comment on above: IG% - Immature Granu locytes (promyelocytes, myelocytes and metamyelocytes) > 1% indicates that a LEFT SHIFT is Present. MCH (RBC) [Entitic mass] 30.8 pg 27.0-32.0 [facility] Nucleated RBC/100 WBC (Bld) [Ratio] 0 % 0-5 [facility] MCHC Auto (RBC) [Mass/Vol]Or dered By: Michael Soto on 12-17-2022 MCHC (RBC) [Mass/Vol] 32.8 g/dL 32-36 [facility] No Panel InformationOrdered By: Michael Soto on 12-17-2022 Estimated GFR (MDRD) Amer 94 mL/min >60 [facility] Comment on above: GFR Calc Estimated GFR (MDRD) Non-Af Amer 78 mL/min >60 [facility] Comment on above: Non- GFR Calc Prostate Specific Antigen Screen 4.61 ng/mL 0.00-4.00 [facility] Comment on above: This test was perfor med using the TPSA assay method for [facility]. Values obtained with differentassay methods cannot be used interchangably.When changing PSA assays in the course of monitoring apatient, additional sequential testing should be carriedout to confirm baseline values. Platelets bldOrdered By: Radha Soto on 12-17-2022 Platelets (Bld) [#/Vol] 214 10*3/uL 150-450 [facility] Serum or plasma albumin enriqueta urement (mass/volume)Ordered By: Michael Soto on 12-17-2022 Albumin [Mass/Vol] 3.5 g/dL 3.2-5.0 [facility] Serum or plasma albumin/glob ulin mass ratioOrdered By: Michael Soto on 12-17-2022 Albumin/Globulin [Mass ratio] 1.1 {ratio} 0.9-2.4 [facility] Serum or plasma calcium enriqueta urement (mass/volume)Ordered By: Michael Soto on 12-17-2022 Calcium [Mass/Vol] 8.8 mg/dL 8.5-10.1 [facility] Serum or plasma creatinine m easurement (mass/volume)Ordered By: Michael Soto on 12-17-2022 Creatinine [Mass/Vol] 1.01 mg/dL 0.70-1.30 [facility] Comment on above: The validity of the calculated GFR & GFRAA in patients over 70 years has not been determined. Clinical correlation is essential. Serum or plasma urea nitroge n measurement (mass/volume)Ordered By: Michael Soto on 12-17-2022 Urea nitrogen [Mass/Vol] 18 mg/dL 7-18 [facility] Thin prep Papanicolaou smear with manual screeningOrdered By: Michael Soto on 12-17-2022 Thin prep Papanicolaou smear with manual screening 18 U/L 15-37 [facility] Thin prep Papanicolaou smear with manual screening 2 5-15 [facility] Absolute lymphocyte counton 12-26-2021 Lymphocytes Auto (Unsp spec) [#/Vol] 1.14 10*3/uL 0.83-4.51 [facility] Work Phone: Basophil percentageon 2021 Basophils/100 WBC (Bld) 0.7 % 0-1 [facility] Work Phone: Bilirubin [Mass/Vol] 0.50 mg/dL 0.20-1.00 [facility] Work Phone: Comment on above: For patients on eltr ombopag therapy, use of Dimension [place] TBIL is not recommended. Chloride [Moles/Vol] 104 mmol/L 98-107 [facility] Work Phone: [phone] Eosinophils/100 WBC (Bld) 0.9 % 0-5 [facility] Work Phone: [phone] Glucose [Mass/Vol] 90 mg/dL 74-106 [facility] Work Phone: Neutrophils (Bld) [#/Vol] 4.2 10*3/uL 2.0-7.7 [facility] Work Phone: [phone] Neutrophils/100 WBC (Bld) 72.2 % 47-70 [facility] Work Phone: [phone] Potassium [Moles/Vol] 4.1 mmol/L 3.5-5.1 [facility] Work Phone: [phone] Protein [Mass/Vol] 6.6 g/dL 6.4-8.2 [facility] Work Phone: [phone] Sodium [Moles/Vol] 139 mmol/L 136-145 [facility] Work Phone: [phone] WBC (Bld) [#/Vol] 5.9 10*3/uL 4.4-11.0 [facility] Work Phone: [phone] Blood erythrocytes count (nu mber/volume)on 12-26-2021 RBC (Bld) [#/Vol] 4.64 10*6/uL 4.6-6.2 [facility] Work Phone: [phone] Blood hemoglobin measurement (mass/volume)on 12-26-2021 Hemoglobin (Bld) [Mass/Vol] 14.2 g/dL 13.0-16.5 [facility] Work Phone: [phone] Blood lymphocytes/100 leukoc yteson 12-26-2021 Lymphocytes/100 WBC (Bld) 19.4 % 19-41 [facility] Work Phone: Blood monocytes/100 leukocyt eson 12-26-2021 Monocytes/100 WBC (Bld) 6.6 % 0-10 [facility] Work Phone: [phone] Blood platelet mean volumeon 12-26-2021 Platelet mean volume (Bld) [Entitic vol] 10.2 fL 6.2-12.0 [facility] Work Phone: Determination of erythrocyte mean corpuscular volume (MCV)on 12-26-2021 MCV (RBC) [Entitic vol] 93.3 fL 80-94 [facility] Work Phone: Hematocrit Auto (Bld) [Volum e fraction]on 12-26-2021 Hematocrit (Bld) [Volume fraction] 43.3 % 40-54 [facility] Work Phone: Laboratory - Chemistry and C hemistry - challengeon 12-26-2021 ALP [Catalytic activity/Vol] 73 U/L 45-117 [facility] Work Phone: ALT [Catalytic activity/Vol] 22 U/L 16-61 [facility] Work Phone: CO2 [Moles/Vol] 30.0 mmol/L 21.0-32.0 [facility] Work Phone: Globulin (S) [Mass/Vol] 3.0 g/dL 2.2-4.2 [facility] Work Phone: Urea nitrogen/Creatinine [Mass ratio] 22.8 mg/mg 10-20 [facility] Work Phone: Laboratory - Hematology and Cell countson 12-26-2021 Erythrocyte distribution width (RBC) [Entitic vol] 44.3 fL 35.1-43.9 [facility] Work Phone: Erythrocyte distribution width (RBC) [Ratio] 12.8 % 11.6-14.6 [facility] Work Phone: Immature granulocytes/100 WBC (Bld) 0.200 % 0.0-0.9 [facility] Work Phone: Comment on above: IG% - Immature Granu locytes (promyelocytes, myelocytes and metamyelocytes) > 1% indicates that a LEFT SHIFT is Present. MCH (RBC) [Entitic mass] 30.6 pg 27.0-32.0 [facility] Work Phone: Nucleated RBC/100 WBC (Bld) [Ratio] 0 % 0-5 [facility] Work Phone: MCHC Auto (RBC) [Mass/Vol]on 12-26-2021 MCHC (RBC) [Mass/Vol] 32.8 g/dL 32-36 [facility] Work Phone: No Panel Informationon 12-26 Estimated GFR (MDRD) Amer 100 mL/min >60 [facility] Work Phone: Comment on above: GFR Calc Estimated GFR (MDRD) Non-Af Amer 83 mL/min >60 [facility] Work Phone: Comment on above: Non- GFR Calc Platelets bldon 12-26-2021 Platelets (Bld) [#/Vol] 252 10*3/uL 150-450 [facility] Work Phone: Serum or plasma albumin enriqueta urement (mass/volume)on 12-26-2021 Albumin [Mass/Vol] 3.6 g/dL 3.2-5.0 [facility] Work Phone: Serum or plasma albumin/glob ulin mass ratioon 12-26-2021 Albumin/Globulin [Mass ratio] 1.2 {ratio} 0.9-2.4 [facility] Work Phone: Serum or plasma calcium enriqueta urement (mass/volume)on 12-26-2021 Calcium [Mass/Vol] 9.1 mg/dL 8.5-10.1 [facility] Work Phone: Serum or plasma creatinine m easurement (mass/volume)on 12-26-2021 Creatinine [Mass/Vol] 0.96 mg/dL 0.70-1.30 [facility] Work Phone: Comment on above: The validity of the calculated GFR & GFRAA in patients over 70 years has not been determined. Clinical correlation is essential. Serum or plasma urea nitroge n measurement (mass/volume)on 12-26-2021 Urea nitrogen [Mass/Vol] 22 mg/dL 7-18 [facility] Work Phone: Thin prep Papanicolaou smear with manual screeningon 12-26-2021 Thin prep Papanicolaou smear with manual screening 15 U/L 15-37 [facility] Work Phone: Thin prep Papanicolaou smear with manual screening 5 5-15 [facility] Work Phone: No Panel Informationon 11-20 Prostate Specific Antigen Screen 4.61 ng/mL 0.00-4.00 [facility] Work Phone: Comment on above: This test was perfor med using the TPSA assay method for [employer] chemistry system. Values obtained with differentassay methods cannot be used interchangably.When changing PSA assays in the course of monitoring apatient, additional sequential testing should be carriedout to confirm baseline values. Vital Signs Date Time Vital Sign Value Performing Clinician Faci lity 06-08-2023 08:00-0500 Body temperature 98.1 [degF] Dr. Michael Soto Work Phone: [facility] 06-08-2023 08:00-0500 Diastolic blood pressure 81 mm[Hg] Dr. Michael Soto Work Phone: [facility] 06-08-2023 08:00-0500 Heart rate 58 /min Dr. Michael Soto Work Phone: [facility] 06-08-2023 08:00-0500 Respiratory rate 14 /min Dr. Michael Soto Work Phone: [facility] 06-08-2023 08:00-0500 SaO2% (BldA) [Mass fraction] 96 % Dr. Michael Soto Work Phone: [facility] 06-08-2023 08:00-0500 Systolic blood pressure 123 mm[Hg] Dr. Michael Soto Work Phone: [facility] 06-06-2023 19:04-0500 Body height 182.[address] Michael Soto Work Phone: [facility] 06-06-2023 19:04-0500 Body mass index (BMI) [Ratio] 22.1 kg/m2 Dr. Michael Soto Work Phone: [facility] 06-06-2023 19:04-0500 Body weight [address] Michael Soto Work Phone: [facility] 05-17-2023 08:30-0500 Body height 182.[address] Michael Soto Work Phone: [facility] 05-17-2023 08:30-0500 Body mass index (BMI) [Ratio] 22.6 kg/m2 Dr. Michael Soto Work Phone: [facility] 05-17-2023 08:30-0500 Body temperature 99.4 [degF] Dr. Michael Soto Work Phone: [facility] 05-17-2023 08:30-0500 Body weight 75.[address] Michael Soto Work Phone: [facility] 05-17-2023 08:30-0500 Diastolic blood pressure 72 mm[Hg] Dr. Michael Soto Work Phone: [facility] 05-17-2023 08:30-0500 Heart rate 85 /min Dr. Michael Soto Work Phone: [facility] 05-17-2023 08:30-0500 Respiratory rate 14 /min Dr. Michael Soto Work Phone: [facility] 05-17-2023 08:30-0500 SaO2% (BldA) [Mass fraction] 95 % Dr. Michael Soto Work Phone: [facility] 05-17-2023 08:30-0500 Systolic blood pressure 109 mm[Hg] Dr. Michael Soto Work Phone: [facility] 04-24-2023 11:45-0500 Body height 182.[address] Michael Soto Work Phone: [facility] 04-24-2023 11:45-0500 Body mass index (BMI) [Ratio] 23.8 kg/m2 Dr. Michael Soto Work Phone: [facility] 04-24-2023 11:45-0500 Body temperature 98.1 [degF] Dr. Michael Soto Work Phone: [facility] 04-24-2023 11:45-0500 Body weight 79.[address] Michael Soto Work Phone: [facility] 04-24-2023 11:45-0500 Diastolic blood pressure 77 mm[Hg] Dr. Michael Soto Work Phone: [facility] 04-24-2023 11:45-0500 Heart rate 84 /min Dr. Michael Soto Work Phone: [facility] 04-24-2023 11:45-0500 Respiratory rate 16 /min Dr. Michael Soto Work Phone: [facility] 04-24-2023 11:45-0500 SaO2% (BldA) [Mass fraction] 100 % Dr. Michael Soto Work Phone: [facility] 04-24-2023 11:45-0500 Systolic blood pressure 138 mm[Hg] Dr. Michael Soto Work Phone: [facility] 04-24-2023 08:35-0500 Body mass index (BMI) [Ratio] 23.8 kg/m2 Dr. Michael Soto Work Phone: [facility] 04-24-2023 08:35-0500 Body temperature 96.9 [degF] Dr. Michael Soto Work Phone: [facility] 04-24-2023 08:35-0500 Body weight 79.[address] Michael Soto Work Phone: [facility] 04-24-2023 08:35-0500 Diastolic blood pressure 79 mm[Hg] Dr. Michael Soto Work Phone: [facility] 04-24-2023 08:35-0500 Heart rate 57 /min Dr. Michael Soto Work Phone: [facility] 04-24-2023 08:35-0500 Respiratory rate 17 /min Dr. Michael Soto Work Phone: [facility] 04-24-2023 08:35-0500 SaO2% (BldA) [Mass fraction] 100 % Dr. Michael Soto Work Phone: [facility] 04-24-2023 08:35-0500 Systolic blood pressure 143 mm[Hg] Dr. Michael Soto Work Phone: [facility] Encounters Encounter Date Encounter Type Care Provider Facility Start: 10-19-2024 End: 10-19-[address] Michael Soto DO Work Phone: [facility] Work Phone: Start: 10-19-2024 End: 10-19-[address] Juanito Potts MD -Laboratory [place] Work Phone: Start: 10-19-2024 End: 10-19-2024 ambulatory Michael Soto Facility:[facility] Start: 08-04-2024 End: 08-04-[address] Michael Soto DO Work Phone: [facility] Work Phone: Start: 08-04-2024 End: 08-04-[address] Michael Soto -Laboratory, [place] Work Phone: Start: 08-04-2024 End: 08-04-2024 ambulatory Michael Soto Facility:[facility] Start: 01-08-2024 End: 01-08-2024 ambulatory Michael Soto Facility:[facility] Start: 10-13-2023 End: 10-13-2023 ambulatory [facility] Work Phone: Start: 10-13-2023 End: 10-13-2023 Patient encounter procedure [facility], [place] Work Phone: Start: 06-06-2023 End: 06-08-2023 Evaluation and management of inpatient Dr. Michael Soto Work Phone: [facility]-Medical Surgical 3 Work Phone: Start: 05-17-2023 End: 05-17-[address] Michael Soto Work Phone: [facility] Work Phone: Start: 05-17-2023 End: 05-17-[address] [facility] Start: 05-17-2023 End: 05-17-[address] Michael Soto Work Phone: [facility] Work Phone: Start: 04-24-2023 End: 04-24-2023 Emergency department patient visit Dr. Michael Soto Work Phone: [facility]-Emergency Department Work Phone: Start: 04-24-2023 End: 04-24-[address] Michael Soto Work Phone: [facility] Work Phone: Start: 04-24-2023 End: 04-24-[address] Michael Soto Work Phone: [facility]-Cat Scan, [facility] Work Phone: Start: 12-17-2022 End: 12-17-2022 ambulatory [facility] Work Phone: Start: 12-17-2022 End: 12-17-2022 Patient encounter procedure [facility], [place] Work Phone: Start: 12-26-2021 End: 12-26-2021 Patient encounter procedure [facility], [place] Start: 11-20-2021 End: 11-20-2021 Patient encounter procedure [facility], [place] Start: 11-08-2021 End: 11-08-2021 Patient encounter procedure [facility] Procedures Date Procedure Procedure Detail Performing Clinician Start: 10-19-2024 Assay of prostate sp ecific antigen total Dr. Michael Soto DO Work Phone: Comment on above: This test was perfor med using the [employer] tPSA method. Measured values of a patient sample can vary depending on the testing procedure used. PSA values determined on patient samples by different testing procedures cannot be used interchangeably. If there is a change in PSA assays while monitoring therapy, sequential testing should be performed to confirm baseline values. Start: 06-06-2023 Lap Robotic Simple Prostatectomy (Not Applicable) Dr. Michael Soto Work Phone: Start: 05-17-[address] Michael Soto Work Phone: Start: 04-24-2023 Computed tomography of abdomen and pelvis with contrast Dr. Michael Soto Work Phone: Plan of Treatment Date Care Activity Detail Author Start: 06-08-2023 Patient discharge [facility] Start: 06-06-2023 Incentive spirometry [facility] Start: 06-06-2023 [facility] Start: 06-06-2023 Application of intermittent pneumatic compression device [facility] Start: 06-06-2023 Following clinical pathway protocol [facility] Start: 06-06-2023 Admission procedure [facility] Start: 06-06-2023 Deep breathing and coughing exercises [facility] Start: 06-06-2023 Irrigation of urinar y bladder [facility] Start: 06-06-2023 Measuring intake and output [facility] Start: 06-06-2023 Oxygen therapy [facility] Start: 06-06-2023 Patient education [facility] Start: 06-06-2023 Provision of activit y privileges [facility] Start: 06-06-2023 Taking patient vital signs [facility] Start: 06-06-2023 Vital signs measurements [facility] Start: 06-06-2023 [facility] Patient Education ED BPH (Enlarg ed Prostate) ED Wheeler Catheter, Care ED Urinary Retention, Male [facility] Work Phone: Patient referral [facility] Work Phone: Immunizations Immunization Date Immunization Notes Care Provider Fa cili 2020 [facility] ([facility]) [facility] 08-02-2020 [facility] ([facility]) [facility] Payers Date Payer Category Payer Self-pay [id number] 2023 Private Health Insurance CLI [id number] 2019 Medicare [id number] Unknown [id number] Unknown [id number] Unknown [id number] Unknown [id number] Social History Date Type Detail Facility Start: 08-09-2015 End: 05-29-2023 Tobacco smoking status NHIS Unknown if ever smoked [facility] Start: 04-19-2021 Rare [facility] Start: 04-19-2021 Non-smoker [facility] Start: 1955 Sex Assigned At Male [facility] Start: 05-29-2023 Tobacco smoking stat us NHIS Ex-smoker (finding) [facility] Start: 08-19-2024 Sex Male (finding) [facility] Medical Equipment Procedure Code Equipment Code Equipment Origin al Text Equipment Identifier Dates Collagen haemost atic agent, non-antimicrobial [id number] [id number] FDA Start: 06-06-2023 Goals Date Patient Goal Desired Activity /State Functional Status Date Assessment Result Facility 06-08-2023 Functional status Ambulates [facility] Work Phone: Mental Status Date Assessment Result Facility 06-08-2023 Cognitive function Voice/Name [facility] Work Phone: Clinical Notes 04-24-2023 to 06-08-2023 Note Date & Type Note Facility 06-08-2023 Progress note Note Date/Time June 08, 2023 10:03am [facility] Medical Records Department [address] [place] [address] Progress Note - Urology 06/08/23 1002 MR#: [id number] Acct: [id number] Name: SHEKHAR THOMPSON Rep #:[id number] : 1955 67 From: Juanito Potts MD PCP: Dr. Michael Soto, DO Status:ADM IN Location: [place] [address]-1 Subjective Subjective Status post robotic simple prostatectomy for BPH and obstruction retention of urine urine is perfectly clear off irrigation we will put a catheter plug and today he will go home with a catheter to leg bag and large bag follow-up in about 7 to 10 days for catheter removal Objective Data Objective Data Vital Signs: Vital Signs Temp Pulse Resp BP Pulse Ox O2 Del Method 98.1 F 58 L 14 123/81 H 96 Room Air 12/31/23 08:00 06/08/23 08:00 06/08/23 08:00 06/08/23 08:00 06/08/23 08:00 06/08/23 08:00 Oxygen Delivery Method Room Air Weight: 74 kg Body Mass Index (BMI) 22.1 Intake & Output: Intake and Output for Last 24 Hours 06/06/23 06/07/23 06/08/23 23:59 23:59 23:59 Intake Total 1529.17 / 1529.17 788.33 / 1288.33 2099.17 / 2099.17 Output Total 1250 / 1250 3100 / 3100 1875 / 1875 Balance 279.17 / 279.17 -2311.67 / -1811.67 224.17 / 224.17 Lab / Micro Data 06/07/23 06:38 06/07/23 06:38 06/08/23 1003 <Electronically signed by Juanito Potts MD> Cosigner Signature (if applicable): CC: ~ Signed [facility] Work Phone: 1(371) 847-784712-30-2023 Progress note Author Juanito Potts [facility] June 07, 2023 8:22am Note Date/Time June 07, 2023 8:23am [facility] Medical Records Department [address] [place] [address] Progress Note - Urology 06/07/23821 MR#: [id number] Acct: [id number] Name: SHEKHAR THOMPSON Rep #:[id number] : 1955 67 From: Juanito Potts MD PCP: Dr. Michael Soto, DO Status:ADM IN Location: [place] [address] Subjective Subjective Patient out of bed this morning urine is a light bloody color but still with irrigation he is doing well up and alert pain is under control at some mild discomfort when getting out of bed. Doing well postoperative day #1 probably will be ready for discharge tomorrow Objective Data Objective Data Vital Signs: Vital Signs Temp Pulse Resp BP Pulse Ox O2 Del Method 98.9 F 62 16 107/50 L 98 Room Air 06/07/23 06:58 06/07/23 06:58 06/07/23 06:58 06/07/23 06:58 06/07/23 06:58 06/07/23 07:41 Oxygen Delivery Method Room Air Weight: 74 kg Body Mass Index (BMI) 22.1 Intake & Output: Intake and Output for Last 24 Hours 06/05/23 06/06/23 06/07/23 23:59 23:59 23:59 Intake Total 1529.17 / 1529.17 Output Total 1250 / 1250 400 / 400 Balance 279.17 / 279.17 -400 / -400 Lab / Micro Data 06/07/23 06:38 06/07/23 06:38 Labs: Laboratory Results - last 24 hr 06/07/23 06:38: WBC 10.4, RBC 3.26 L, Hgb 10.0 L, Hct 30.1 L, MCV 92.3, MCH 30.7, MCHC 33.2, RDW Std Deviation 47.1 H, RDW Coeff of Jean 14.0, Plt Count 261,MPV 9.0, Sodium 138, Potassium 4.7, Chloride 107, Carbon Dioxide 27.0, Anion Gap4 L, BUN 23 H, Creatinine 1.39 H, Estim Creat Clear Calc 53.24, Est GFR (MDRD) Af Amer 65, Est GFR (MDRD) Non-Af 54 L, BUN/Creatinine Ratio 16.5, Glucose 108 H, Calcium 8.3 L 06/07/23 0822 <Electronically signed by Juanito Potts MD> Cosigner Signature (if applicable): CC: ~ Signed [facility] Work Phone: 1(602) 304-760512-29-2023 [facility] Discharge summary Author Juanito Potts [facility] June 06, 2023 1:52pm Note Date/Time June 06, 2023 1:52pm [facility] Medical Records Department [address] [place] [address] Instructions for Home/Discharge Instructions 06/06/23 1352 MR#: [id number] Acct: [id number] Name: SHEKHAR THOMPSON Rep #:[id number] : 1955 67 From: Juanito Potts MD PCP: Dr. Michael Soto, DO Status:REG SDC Discharge Instructions Diet Discharge Diet: No restrictions Activity Discharge Activity: Return to Normal Activity and May Not Drive (while taking narcotic pain medications.) Dressing / Incision Call your doctor if you observe: Fever of 101 or Higher Catheter: Wheeler to leg bag and Wheeler to large bag Drain: [place] Follow Up Care Please Follow Up With: Juanito oPtts MD When: Call [phone] for an appointment Test Results: Test results from this visit will be discussed in further detail at your follow- up appointment, if applicable. Discharge Plan Admission Primary Reason for Your Visit: Simple prostatectomy Attending Provider: Juanito Potts Primary Care Provider: Michael Soto Discharge Orders/Prescriptions Prescriptions: New ciprofloxacin HCl [Cipro] 500 mg tablet 500 mg PO BID Qty: 20 0RF ibuprofen 600 mg tablet 600 mg PO Q6H PRN (Reason: fever or pain) Qty: 20 0RF acetaminophen [Tylenol Extra Strength] 500 mg tablet 500 mg PO Q6H PRN (Reason: fever or pain) Qty: 20 0RF No Action latanoprost 0.005 % drops 1 drp ophthalmic (eye) QHS Referrals / Follow Up: Michael Soto DO [Primary Care Provider] - Disposition Disposition (needs filled in before D/C Order can be placed): Home, Self Care 06/06/23 1352<Electronically signed by Juanito Potts MD>Juanito Potts MD CC: Dr. Michael Soto, ~ Signed [facility] Work Phone: 1(169) 624-558412-29-2023 History and physical note Author Juanito Potts [facility] June 06, 2023 1:52pm Note Date/Time June 06, 2023 1:52pm [facility] Medical Records Department [address] [place] [address] History & Physical Exam 06/06/23 1351 MR#: [id number] Acct: [id number] Name: SHEKHAR THOMPSON Rep #:[id number] : 1955 67 From: Juanito Potts MD PCP: Dr. Michael Soto DO Status:REG [facility] Location: [place] [address] HPI - General General Date of Service: 06/06/23 Chief Complaint: Urinary retention HPI Narrative SHEKHAR THOMPSON, is a 67 M who presents simple robotic prostatectomy for urinary retention PFSH Medical History (Updated 05/29/23 @ 08:19 by Shanice Giang) Alcohol use Former smoker History of stress test Indwelling urethral catheter present Leg cramps Migraine headache Prostate disease Shortness of breath on exertion Wears glasses Home Medications latanoprost 0.005 % eye drops 1 drp ophthalmic (eye) QHS 04/24/23 [History Last Taken Unknown] acetaminophen 500 mg tablet (Tylenol Extra Strength) 500 mg PO Q6H PRN fever or pain #20 tabs 06/06/23 [Rx Last Taken Unknown] ciprofloxacin HCl 500 mg tablet (Cipro) 500 mg PO BID #20 tabs 06/06/23 [Rx Last Taken Unknown] ibuprofen 600 mg tablet 600 mg PO Q6H PRN fever or pain #20 tabs 06/06/23 [Rx Last Taken Unknown] Allergy/AdvReac Type Severity Reaction Status Date / Time No Known Allergies Allergy Verified 06/06/23 11:09 Family History Father Heart disease Mother Cancer pancreatic Surgical History (Updated 05/29/23 @ 08:19 by Shanice Giang) Hx of colonoscopy Hx of tonsillectomy Social History Smoking Status: Former smoker alcohol intake: current substance use type: does not use Vital Signs Vital Signs Vital Signs: 06/06/23 11:12 06/06/23 11:12 Temperature 97.5 F L Temperature Source Temporal Pulse Rate 50 L Respiratory Rate 16 Respiratory Pattern Normal Blood Pressure 111/62 Blood Pressure Mean 78 Blood Pressure Source Monitor Blood Pressure Position Semi-Fowlers Blood Pressure Location Left Arm Pulse Ox 99 Oxygen Delivery Method Room Air Weight Weight: 74 kg Body Mass Index (BMI) 22.1 06/06/23 1352 <Electronically signed by Juanito Potts MD> Cosigner Signature (if applicable): CC: Dr. Juanito Potts MD; Dr. Michael Soto DO~ Signed [facility] Work Phone: 1(174) 601-383611-16-2023 Discharge summary [facility] April 24, 2023 1:48pm Note Date/Time April 24, 2023 12:11pm [facility] Medical Records Department [address] [place] [address] Emergency Department Summary 04/24/23 MR#: [id number] Acct: [id number] Name: SHEKHAR THOMPSON Rep #:[id number] 67 From: Dylon Arteaga MD PCP: Dr. Michael Soto, DO Status:REG ER Location: ED HPI History of Present Illness Chief Complaint: Complaint Narrative Narrative: 67-year-old male past medical history of enlarged prostate, presents from CT scan after being seen by Dr. Frazier for suspected ventral hernia. Patient relates history that he was seen by his primary care provider last week. Was thought that maybe he had a ventral hernia because he complained of pressure in the suprapubic area/umbilical area. He states he has not really had problems urinating except for over the last month has had nighttime leaking of urine. Nofevers or chills, no nausea or vomiting, no problems with bowel movement. He states that he has an appointment with Dr. Potts next week because of an enlarged prostate. This was set up by his primary care provider as well. He presents because CT that was obtained by general surgery showed more of an enlarged bladder with bilateral hydronephrosis. PFSH PFSH Home Medications latanoprost 0.005 % eye drops 1 drp ophthalmic (eye) DAILY 04/24/23 [History Last Taken Unknown] tamsulosin 0.4 mg capsule (Flomax) 0.4 mg PO DAILY #14 caps 04/24/23 [Rx Last Taken Unknown] Allergy/AdvReac Type Severity Reaction Status Date / Time No Known Allergies Allergy Unverified 04/24/23 08:38 Family History Father Heart disease Mother Cancer pancreatic Social History Smoking Status: Former smoker alcohol intake: current substance use type: does not use ROS ROS ED ROS Narrative Constitutional: No fever, no chills. HEENT: No sore throat. No neck pain. No loss of vision. No rhinorrhea. Cardiovascular: No chest pain. No palpitations. No pedal edema. Respiratory: No cough, no shortness of breath. Abdominal: Pubic abdominal pressure/abdominal pain. No nausea. No vomiting. Genitourinary: No dysuria. No hematuria. Positive nighttime leakage of urine. Musculoskeletal: No myalgias. No arthralgias. Neurologic: No headaches. No dizziness. No lightheadedness. Skin: No rash. No change in color. Psychiatric: No depression. No anxiety. EXAM Physical Exam Narrative Exam Narrative: Afebrile. Vital signs noted. HEENT: Normocephalic. Atraumatic. PERRL, EOMI. Neck soft and supple. No pointtenderness or step off. Cardiovascular: Regular rate and rhythm. No murmurs, rubs, or gallops appreciated. Respiratory: No tachypnea. Lungs clear to auscultation bilaterally. Gastrointestinal: Abdomen soft, nontender, with normoactive bowel sounds. Distended bladder on palpation in suprapubic area. No rebound or guarding. Neurological: Awake. Alert. Nonfocal, nonlateralizing. Skin: No rash. Normal color. No pallor. Musculoskeletal: No pedal edema. Full range of motion extremities. Const Vital Signs: 04/24/23 11:45 Temperature 98.1 F Temperature Source Temporal Pulse Rate 84 Respiratory Rate 16 Blood Pressure 138/77 H Blood Pressure Mean 97 Pulse Ox 100 Oxygen Delivery Method Room Air MDM MDM MDM Narrative Medical decision making narrative: Major concern is for urinary bladder outlet obstruction secondary to BPH. I do feel that laboratory work is indicated mainly to check his kidney function and creatinine to make sure that he does not have severely elevated creatinine/acutekidney injury versus uremia. Wheeler catheter will be inserted. I reviewed his CT imaging from outpatient that was performed today. I will also send his urinefor analysis to rule out UTI. In review of his outpatient diagnostic imaging he does have a distended bladder with a bladder diverticulum and bilateral hydronephrosis secondary to an enlarged prostate that measures at least 5 x 5. I reviewed his laboratory work from today and he has normal white count of 5.3, hemoglobin stable 11.1, platelet count normal at 156, sodium normal at 142 with chloride slightly elevated at 109, BUN of 27 with creatinine slightly elevated at 1.7 consistent with acute kidney injury. Glucose was appropriately elevated at 91 with a normal anion gap/low at 3. Urinalysis is negative for infection. In discussion with the patient and his , Dr. Frazier has already written him for Flomax. He has an appointment scheduled on Friday of next week with the urologist, Dr. Potts. He will be discharged with a Wheeler leg bag. I do not feel he requires observation or admission at this time. I do think that hisurinary retention is secondary to his enlarged prostate and that he should get his creatinine rechecked as the bladder outflow obstruction has been relieved with a Wheeler catheter currently. Return instructions to the emergency department were reviewed. Patient and are agreeable to the plan. Disposition is discharged home in stable condition. History & Record Review Discussion w/independent historian: Patient and Family () Additional record(s) reviewed:: Prior outpatient record, Prior ED visit and Prior labs Lab Data Attestation: I reviewed the patient's lab results. Labs: Laboratory Results - last 24 hr 04/24/23 04/24/23 12:25 12:29 WBC 5.3 RBC 3.66 L Hgb 11.1 L Hct 34.7 L MCV 94.8 H MCH 30.3 MCHC 32.0 RDW Std Deviation 44.4 H RDW Coeff of Jean 12.8 Plt Count 156 MPV 10.3 Immature Gran % (Auto) 0.400 Neut % (Auto) 69.9 Lymph % (Auto) 18.5 L Ross % (Auto) 7.4 Eos % (Auto) 3.2 Baso % (Auto) 0.6 Absolute Neuts (auto) 3.7 Absolute Lymphs (auto) 0.98 Nucleated RBC % 0 Sodium 142 Potassium 4.6 Chloride 109 H Carbon Dioxide 30.0 Anion Gap 3 L BUN 27 H Creatinine 1.70 H Estim Creat Clear Calc 45.65 Est GFR (MDRD) Af Amer 52 L Est GFR (MDRD) Non-Af 43 L BUN/Creatinine Ratio 15.9 Glucose 91 Calcium 8.2 L Urine Color Yellow Urine Clarity Clear Urine pH 6.0 Ur Specific [place] 1.010 Urine Protein Negative Urine Glucose (UA) Normal Urine Ketones Negative Urine Occult Blood Negative Urine Nitrite Negative Urine Bilirubin Negative Urine Urobilinogen Normal Ur Leukocyte Esterase Negative Urine RBC 0 SEEN Urine WBC 0 SEEN Ur Squamous Epith Cells 0 SEEN Urine Bacteria 0 SEEN Urine Mucus 0 SEEN Discharge Plan Triage Chief Complaint: Complaint ED Provider: Dylon Arteaga Dx/Rx/DC Orders Clinical Impression: Bladder diverticulum, Enlarged prostate, Elevated serum creatinine, Urinary retention Instructions: ED BPH (Enlarged Prostate), ED Wheeler Catheter, Care, ED Urinary Retention, Male Prescriptions: No Action latanoprost 0.005 % drops 1 drp ophthalmic (eye) DAILY tamsulosin [Flomax] 0.4 mg capsule 0.4 mg PO DAILY Qty: 14 0RF Primary Care Provider: Michael Soto Referrals: Juanito Potts MD [Med Staff - Active Staff] - Keep Carla appointment Michael Soto DO [Primary Care Provider] - Activity Restrictions/Additional Instructions: Follow-up with Dr. Potts as scheduled. Take the Flomax written for you by Dr. Frazier. Do not pull at Wheeler catheter. Disposition Disposition: Home, Self Care What to do if you have Problems For any increased pain, shortness of breath, bleeding, nausea or vomiting, chestpain, or any unexpected problems, contact your Primary Care Provider. Call [facility] ([phone]) or report to the closest Emergency Room. Call 911 if necessary. 04/24/23 1348 <Electronically signed by Dylon Arteaga MD> Cosigner Signature (if applicable): CC: Dr. Michael Soto DO ~ Signed [facility] Work Phone: Evaluation noteNo assessment information available [facility] Work Phone: Evaluation note* Diagnosis Onset Date Resolution Status Diastasis recti acute Urinary retention acute [facility] Work Phone: Evaluation note* Diagnosis Onset Date Resolution Status Diastasis recti acute Urinary retention acute Urinary retention acute UTI (urinary tract infection) acute [facility] Work Phone: Hospital Discharge instructions Additional Instructions Follow-up with Dr. Potts as scheduled. Take the Flomax written for you by Dr. Frazier. Do not pull at Wheeler catheter.[facility] Work Phone: Hospital Discharge instructions Additional Instructions Implant Used?: Yes [facility] Work Phone: Reason for referral (narrative)No reason for referral [facility] Work [facility]: Chief Complaint and Reason for Visit Chief Complaint VENTRAL HERNIA STAT K43.9 Ventral hernia without obstruction or g URINARY Reason for Visit Diastasis recti Urinary retention Chief Complaint VENTRAL HERNIA STAT K43.9 Ventral hernia without obstruction or g URINARY CONCERN FOR UTI Reason for Visit Diastasis recti Urinary retention Urinary retention UTI (urinary tract infection) Chief Complaint VENTRAL HERNIA STAT K43.9 Ventral hernia without obstruction or g URINARY CONCERN FOR UTI LAPAROSCOPIC ROBOTIC SIMPLE PROSTATECTOMY Reason for Visit Diastasis recti Urinary retention Urinary retention UTI (urinary tract infection) Chief Complaint Admit Date FASTING August 04, 2024 8:18am Chief Complaint Admit Date FASTING August 04, 2024 8:18am PSA October 19, 2024 8:45a m Family History No Family History Records Found Relationship Condition Age at Onset Recorded Date/T katherine father Cardiac disease Unknown mother Malignant neoplasm Unknown Advance Directives No Advanced Directives Records Found Advance Directive Response Recorded Date/ Time Living Will No April 24 023 12:46pm Power of Communications Manager No April 24, 2023 12:46pm Advance Directive Response Recorded Date/ Time Name of Medical Power of Communications Manager Dorina Tawny June 06, 2023 7:04pm Living Will Yes June 06 023 7:04pm Power of Communications Manager Yes June 06, 2023 7:04pm Advance Directive Response Recorded Date/ Time Living Will Yes June 06 8:04pm Power of Communications Manager Yes June 06, 2023 8:04pm Summary Purpose Additional Source Comments Goals (unrecognized section and content) Goals may be documented in a n alternate sectionGoals may be documented in an alternate sectionGoals may be documented in an alternate sectionGoals may be documented in an alternate sectionGoals may be documented in an alternate sectionGoals may be documented in an alternate sectionGoals may be documented in an alternate sectionGoals may be documented in an alternate sectionGoals may be documented in an alternate sectionGoals may be documented in an alternate section Care Teams (unrecognized sec tion and content) Team Status: Active Member Role Status Dates Dr. Michael Soto , DO Family Provider Active Dr. Michael Soto , DO Primary Care Provider Active Team Status: Inactive Member Role Status Dates Dr. Michael Soto , DO Primary Care Prov ider, Attending Provider, Referring Provider Active Team Status: Inactive Member Role Status Dates Dr. Michael Soto DO Primary Care Provider, Referrin g Provider Active Dr. Elvira Frazier MD Attending Provider Active Team Status: Active Member Role Status Dates Dr. Michael Soto DO Primary Care Provider Active Dr. Elvira Frazier MD Attending Provider, Referring Provider Active Team Status: Inactive Member Role Status Dates Dr. Michael Soto DO Primary Care Provider Active Dylon Arteaga MD Emergency Provider Active Team Status: Inactive Member Role Status Dates Dr. Michael Soto DO Primary Care Provider Active Dr. Elvira Frazier MD Attending Provider, Referring Provider Active Team Status: Inactive Member Role Status Dates Dr. Michael Soto DO Primary Care Provider, Referrin g Provider Active Ambar ALVARES, PA Attending Provider Active Team Status: Inactive Member Role Status Dates Dr. Michael Soto DO Primary Care Provider Active Dylon Arteaga MD Attending Provider, Emergency Provid er Active Team Status: Inactive Member Role Status Dates Dr. Michael Soto DO Primary Care Provider Active Ambar Westfall PA, PA Attending Provider Active Team Status: Inactive Member Role Status Dates Dr. Michael Soto DO Primary Care Provider Active Dr. Juanito Potts MD Admit Provid er, Attending Provider, Referring Provider Active Team Status: Inactive Member Role Status Dates Dr. Michael Soto DO Primary Care Provider Active Dr. Juanito Potts MD Attending Provider, Referr ing Provider Active Team Status: Inactive Member Role Status Dates Dr. Michael Soto DO Primary Care Provider Active Start: August 04, 2024 End: August 04, 2024 Dr. Michael Soto DO Attending Provider Active Start: August 04, 2024 End: August 04, 2024 Dr. Michael Soto DO Referring Provider Active Start: August 04, 2024 End: August 04, 2024 Team Status: Inactive Member Role Status Dates Dr. Michael Soto DO Primary Care Provider Active Start: October 19, 2024 End: October 19, 2024 Dr. Juanito Potts MD Attending Provider Active Start: October 19, 2024 End: October 19, 2024 Dr. Juanito Potts MD Referring Provider Active Start: October 19, 2024 End: October 19, 2024 (unrecognized sect ion and content) No Status Records Found INFORMATION SOURCE (unrecogn ized section and content) DATE CREATED AUTHOR 10/26/2024 [facility] FOR RECORDS PERTAINING TO PATIENTS WHO ARE OR HAVE BEEN ENROLLED IN A CHEMICAL DEPENDENCY/SUBSTANCEABUSE PROGRAM, SOME INFORMATION MAY BE OMITTED. This clinical summary was aggregated from multiple sources. Caution should be exercised in using it in the provision of clinical care. This summary normalizes information from multiple sources, and as a consequence, information in this document may materially change the coding, format and clinical context of patient data. In addition, data may be omitted in some cases. CLINICAL DECISIONS SHOULD BE BASED ON THE PRIMARY CLINICAL RECORDS. [employer] provides no warranty or guarantee of the accuracy or completeness of information in this document.
[2025-06-06 12:33] LABS: CRP < 3.00 mg/L (0.0-3.0)
[2025-06-07 12:08] LABS: PROEL- A/G Ratio 1.6 (0.7-1.7); PROEL- Albumin 3.9 g/dL (2.9-4.4); PROEL- Alpha-1 Globulin 0.1 g/dL (0.0-0.4); PROEL- Alpha-2 Globulin 0.6 g/dL (0.4-1.0); PROEL- Beta Globulin 0.9 g/dL (0.7-1.3); PROEL- Gamma Globulin 0.8 g/dL (0.4-1.8); PROEL- Globulin, Total 2.4 g/dL (2.2-3.9); PROEL- TOTAL PROTEIN 6.3 g/dL (6.0-8.5); PROEL-M-Spike Not Observed g/dL (Not Observed)
== END | disposition home or self-care (01) ==
LOC: BFHLAB 09:40
PROVIDERS: PCP Family Medicine; Visit Provider Family Medicine
DX: L97.519 Non-pressure chronic ulcer of other part of right foot with unspecified severity (principal); L97.529 Non-pressure chronic ulcer of other part of left foot with unspecified severity; R73.01 Impaired fasting glucose
CPT/HCPCS: 36415; 83036; 84165; 85652; 86140